=== PATIENT | female | born 1970 | race Caucasian/White ===

== ENCOUNTER 2018-02-24 15:08 | Emergency (ER) | payer BC ==
--- NOTE | 2018-02-24 17:09 | EDPHYS ---
Physician Documentation [facility] Name: Linda Verdin Age: 48 yrs Sex: Female : 1970 Arrival Date: 02/24/2018 Time: 15:10 Bed 18 Private MD: ED Physician Christiano Romo HPI: 02/24 17:07 This 48 yrs old Female presents to ER via Ambulatory with complaints of Nose kb Bleed. 17:07 The patient presents with a nose bleed, and the bleeding resolved prior to arrival. kb Onset: The symptoms/episode began/occurred just prior to arrival. Modifying factors: The symptoms are alleviated by pressure, the symptoms are aggravated by nothing. Associated signs and symptoms: The patient has no apparent associated signs or symptoms, Loss of consciousness: the patient experienced no loss of consciousness. Severity of symptoms: At their worst the symptoms were moderate in the emergency department the symptoms are unchanged. The patient has not experienced similar symptoms in the past. The patient has not recently seen a physician. 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 - Social history:: Smoking status: Patient/guardian denies using tobacco. - Ebola Screening: : No symptoms or risks identified at this time. ROS: 17:06 Constitutional: Negative for fever, chills, and weight loss, Cardiovascular: Negative kb for chest pain, palpitations, and edema, Respiratory: Negative for shortness of breath, cough, wheezing, and pleuritic chest pain, Abdomen/GI: Negative for abdominal pain, nausea, vomiting, diarrhea, and constipation, MS/Extremity: Negative for injury and deformity, Skin: Negative for injury, rash, and discoloration, Neuro: Negative for headache, weakness, numbness, tingling, and seizure. 17:06 ENT: Positive for nose bleed. Exam: 17:06 Constitutional: This is a well developed, well nourished patient who is awake, alert, kb and in no acute distress. Head/Face: Normocephalic, atraumatic. Neck: Trachea midline, no thyromegaly or masses palpated, and no cervical lymphadenopathy. Supple, full range of motion without nuchal rigidity, or vertebral point tenderness. No Meningismus. Chest/axilla: Normal chest wall appearance and motion. Nontender with no deformity. No lesions are appreciated. Cardiovascular: Regular rate and rhythm with a normal S1 and S2. No gallops, murmurs, or rubs. Normal PMI, no JVD. No pulse deficits. Respiratory: Lungs have equal breath sounds bilaterally, clear to auscultation and percussion. No rales, rhonchi or wheezes noted. No increased work of breathing, no retractions or nasal flaring. Abdomen/GI: Soft, non-tender, with normal bowel sounds. No distension or tympany. No guarding or rebound. No evidence of tenderness throughout. Skin: Warm, dry with normal turgor. Normal color with no rashes, no lesions, and no evidence of cellulitis. MS/ Extremity: Pulses equal, no cyanosis. Neurovascular intact. Full, normal range of motion. Neuro: Awake and alert, GCS 15, oriented to person, place, time, and situation. Cranial nerves II-XII grossly intact. Motor strength 5/5 in all extremities. Sensory grossly intact. Cerebellar exam normal. Normal gait. 17:06 ENT: Nose: clotted blood, in both nares. Vital Signs: 15:25 BP 138 / 71; Pulse 94; Resp 18 S; Temp 98.2(TE); Pulse Ox 98% on R/A; Weight 106.14 kg aa5 (R); Height 5 ft. 2 in. (157.48 cm) (R); Pain 0/10; 17:06 BP 140 / 76; Pulse 85; Resp 18; Pulse Ox 97% on R/A; hj 15:25 Body Mass Index 42.80 (106.14 kg, 157.48 cm) aa5 MDM: 16:40 Patient medically screened. kb 17:07 Data reviewed: vital signs, nurses notes. Data interpreted: Pulse oximetry: on room air kb is 97 %. Interpretation: normal. Counseling: I had a detailed discussion with the patient and/or guardian regarding: the historical points, exam findings, and any diagnostic results supporting the discharge/admit diagnosis, the need for outpatient follow up, a family practitioner, to return to the emergency department if symptoms worsen or persist or if there are any questions or concerns that arise at home. Administered Medications: No medications were administered Disposition: 02/25 07:54 Co-signature as Attending Physician, Christiano Romo MD I agree with the assessment and sanchez plan of care. Disposition: 02/24/18 17:08 Discharged to Home. Impression: Epistaxis. - Condition is Stable. - Discharge Instructions: Nosebleed, [id number]. - Medication Reconciliation Form, Thank You Letter, Antibiotic Education, Prescription Opioid Use form. - Follow up: Emergency Department; When: As needed; Reason: Worsening of condition. Follow up: Private Physician; When: 2 - 3 days; Reason: Recheck today's complaints, Continuance of care, Re-evaluation by your physician. Signatures: Marialuisa Dunlap, BINU-C WATER TREATMENT PLANT OPERATOR-Christiano Saha MD MD cha Calderon, Audri, RN RN aa5 Seymour Singh, RN RN hj Corrections: (The following items were deleted from the chart) 02/24 17:21 17:08 02/24/2018 17:08 Discharged to Home. Impression: Epistaxis. Condition is Stable. hj Forms are Medication Reconciliation Form, Thank You Letter, Antibiotic Education, Prescription Opioid Use. Follow up: Emergency Department; When: As needed; Reason: Worsening of condition. Follow up: Private Physician; When: 2 - 3 days; Reason: Recheck today's complaints, Continuance of care, Re-evaluation by your physician. kb
--- NOTE | 2018-02-24 17:09 | ER ---
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 Pt states "I've aa5 had the flu for the last week but it's pretty much gone now". No bleeding noted at this time. Denies taking anticoagulants. Transition of care: patient was not received from another setting of care. Onset of symptoms was February 24, 2018. Risk Assessment: Do you want to hurt yourself or someone else? Patient reports no desire to harm self or others. Initial Sepsis Screen: Does the patient meet any 2 criteria? No. Patient's initial sepsis screen is negative. Does the patient have a suspected source of infection? No. Patient's initial sepsis screen is negative. Care prior to arrival: None. 15:23 Method Of Arrival: Ambulatory aa5 15:23 Acuity: JOAQUINA 4 aa5 Triage Assessment: 16:24 General: Appears in no apparent distress. uncomfortable, Behavior is calm, cooperative, hj appropriate for age. Pain: Denies pain. 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 - Social history:: Smoking status: Patient/guardian denies using tobacco. - Ebola Screening: : No symptoms or risks identified at this time. Screenin:24 Abuse screen: Denies threats or abuse. Denies injuries from another. Nutritional hj screening: No deficits noted. Tuberculosis screening: No symptoms or risk factors identified. Fall Risk None identified. Assessment: 15:25 General: Appears in no apparent distress. uncomfortable, Behavior is calm, cooperative, hj appropriate for age. Pain: Denies pain. Neuro: Level of Consciousness is awake, alert, obeys commands, Oriented to person, place, time, situation, Appropriate for age. Cardiovascular: Capillary refill < 3 seconds Patient's skin is warm and dry. Respiratory: Reports nose bleed that stopped after 10 mins of pressure; Airway is patent Respiratory effort is even, unlabored, Respiratory pattern is regular, symmetrical, Parent/caregiver reports the patient having. GI:. : No signs and/or symptoms were reported regarding the genitourinary system. EENT: No signs and/or symptoms were reported regarding the EENT system. Derm: No signs and/or symptoms reported regarding the dermatologic system. Musculoskeletal: No signs and/or symptoms reported regarding the musculoskeletal system. 16:30 Reassessment: Patient and/or family updated on plan of care and expected duration. Pain hj level reassessed. Patient is alert, oriented x 3, equal unlabored respirations, skin warm/dry/pink. took propanol; will re check BP;. 17:09 Reassessment: Patient and/or family updated on plan of care and expected duration. Pain hj level reassessed. Patient is alert, oriented x 3, equal unlabored respirations, skin warm/dry/pink. BP re checked, no reports of bleeding;. Vital Signs: 15:25 BP 138 / 71; Pulse 94; Resp 18 S; Temp 98.2(TE); Pulse Ox 98% on R/A; Weight 106.14 kg aa5 (R); Height 5 ft. 2 in. (157.48 cm) (R); Pain 0/10; 17:06 BP 140 / 76; Pulse 85; Resp 18; Pulse Ox 97% on R/A; hj 15:25 Body Mass Index 42.80 (106.14 kg, 157.48 cm) aa5 ED Course: 15:10 Patient arrived in ED. mr 15:25 Triage completed. aa5 15:25 Arm band placed on. aa5 16:24 Seymour Singh, RN is Primary Nurse. hj 16:24 Patient has correct armband on for positive identification. Bed in low position. Call hj light in reach. Side rails up X 1. 16:39 Marialuisa Dunlap FNP-C is [facility]. kb 16:39 Christiano Romo MD is Attending Physician. kb 17:20 No provider procedures requiring assistance completed. Patient did not have IV access hj during this emergency room visit. Administered Medications: No medications were administered Outcome: 17:08 Discharge ordered by . kb 17:21 Discharged to home ambulatory. hj 17:21 Condition: stable 17:21 Discharge instructions given to patient, Instructed on discharge instructions, follow up and referral plans. Demonstrated understanding of instructions, follow-up care. 17:21 Patient left the ED. hj Signatures: Marialuisa Dunlap FNP-C FNP-Tammie Dunn Jennifer Valentin, RN RN aa5 Seymour Singh, CHRISTY RN
[2018-02-24 18:09] VITALS: TEMP 98.2
[2018-02-24 18:12] VITALS: BP 140/76; O2SAT 97
== END 2018-02-24 17:21 | disposition home or self-care (01) ==
LOC: ER 15:08
DX: R04.0 Epistaxis (principal); Z88.0 Allergy status to penicillin; I10 Essential (primary) hypertension; F41.8 Other specified anxiety disorders
CPT/HCPCS: 99281

== ENCOUNTER 2018-05-09 19:11 | Emergency (ER) | payer BC ==
[2018-05-09] MEDS ORDERED: BENZONATATE 100 MG CAP PO ONE (20:05)
--- NOTE | 2018-05-09 20:56 | ER ---
Nurse's Notes [facility] Name: Linda Verdin Age: 48 yrs Sex: Female : 1970 Arrival Date: 05/09/2018 Time: 19:15 Bed 26 Private MD: Diagnosis: Acute upper respiratory infection, unspecified Presentation: 05/09 19:19 Presenting complaint: Patient states: "My grand-daughter has strep throat so I wanted hb to get checked out. My throat is red and itchy" Reports that her throat has been sore for the past 3 days. Denies fever. Transition of care: patient was not received from another setting of care. Resp Distress? No respiratory distress is noted at this time. Onset of symptoms was May 07, 2018. Risk Assessment: Do you want to hurt yourself or someone else? Patient reports no desire to harm self or others. Initial Sepsis Screen: Does the patient meet any 2 criteria? No. Patient's initial sepsis screen is negative. Does the patient have a suspected source of infection? No. Patient's initial sepsis screen is negative. Care prior to arrival: None. 19:19 Method Of Arrival: Ambulatory 19:19 Acuity: JOAQUINA 4 hb Triage Assessment: 19:22 General: Appears in no apparent distress. comfortable, Behavior is calm, cooperative, hb appropriate for age. Pain: Complains of pain in left aspect of posterior pharynx and right aspect of posterior pharynx Pain currently is 3 out of 10 on a pain scale. Neuro: Level of Consciousness is awake, alert, obeys commands. Cardiovascular: Patient's skin is warm and dry. Respiratory: Airway is patent Respiratory effort is even, unlabored, Respiratory pattern is regular, symmetrical. 19:31 EENT: Throat is clear is pink Reports nasal congestion nasal discharge. Respiratory: ak1 Breath sounds are clear. GI: No signs and/or symptoms were reported involving the gastrointestinal system. : No signs and/or symptoms were reported regarding the genitourinary system. Derm: No signs and/or symptoms reported regarding the dermatologic system. Musculoskeletal: No signs and/or symptoms reported regarding the musculoskeletal system. 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 - Social history:: Smoking status: Patient/guardian denies using tobacco. - Ebola Screening: : Patient denies travel to an Ebola-affected area in the 21 days before illness onset. Screenin:30 Abuse screen: Denies threats or abuse. Denies injuries from another. Nutritional ak1 screening: No deficits noted. Tuberculosis screening: No symptoms or risk factors identified. Fall Risk None identified. Assessment: 19:31 Reassessment: Patient appears in no apparent distress at this time. No changes from ak1 previously documented assessment. see triage assessment. Vital Signs: 19:22 BP 137 / 96; Pulse 87; Resp 18; Temp 97.6; Pulse Ox 98% on R/A; Weight 111.13 kg (R); hb Height 5 ft. 2 in. (157.48 cm) (R); Pain 3/10; 19:22 Body Mass Index 44.81 (111.13 kg, 157.48 cm) hb ED Course: 19:15 Patient arrived in ED. mr 19:21 Triage completed. hb 19:22 Arm band placed on Patient placed in an exam room. hb 19:26 Ana Cristina Mead, RN is Primary Nurse. ak1 19:31 Patient has correct armband on for positive identification. Bed in low position. Call ak1 light in reach. Side rails up X 1. 19:34 Christiano Woo PA is PHCP. cp 19:36 Memo Li MD is Attending Physician. cp 20:22 No provider procedures requiring assistance completed. ak1 21:00 Patient did not have IV access during this emergency room visit. ak1 Administered Medications: 20:01 Drug: Tessalon Perle 200 mg Route: PO; ak1 20:22 Follow up: Response: No adverse reaction ak1 Outcome: 20:54 Condition: good ak1 20:56 Discharge ordered by . cp 20:58 Discharged to home ambulatory. ak1 20:58 Discharge instructions given to patient, Instructed on discharge instructions, follow up and referral plans. no drinking with medication, no driving heavy equipment, medication usage, Demonstrated understanding of instructions, follow-up care, medications, Prescriptions given X 2. 21:01 Patient left the ED. ak1 Signatures: Chen Esteban mr Ana Cristina Mead RN RN ak1 Christiano Woo PA PA cp Baxter, Heather, CHRISTY RN
--- NOTE | 2018-05-09 20:56 | EDPHYS ---
Physician Documentation [facility] Name: Linda Verdin Age: 48 yrs Sex: Female : 1970 Arrival Date: 05/09/2018 Time: 19:15 Bed 26 Private MD: ED Physician Memo Li HPI: 05/09 19:45 This 48 yrs old Female presents to ER via Ambulatory with complaints of cp Congestion, Sore Throat, Cough. 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 - Social history:: Smoking status: Patient/guardian denies using tobacco. - Ebola Screening: : Patient denies travel to an Ebola-affected area in the 21 days before illness onset. ROS: 20:00 Constitutional: Negative for body aches, chills, fever, poor PO intake. cp 20:00 Eyes: Negative for injury, pain, redness, and discharge. cp 20:00 ENT: Positive for sore throat, Negative for drainage from ear(s), ear pain, difficulty swallowing, difficulty handling secretions. 20:00 Cardiovascular: Negative for chest pain. 20:00 Respiratory: Positive for cough, Negative for shortness of breath, wheezing. 20:00 Abdomen/GI: Negative for abdominal pain, nausea, vomiting, and diarrhea. 20:00 Skin: Negative for cellulitis, rash. 20:00 Neuro: Negative for altered mental status, headache. 20:00 All other systems are negative. Exam: 20:05 Constitutional: The patient appears in no acute distress, alert, awake, non-toxic, well cp developed, well nourished. 20:05 Head/Face: Normocephalic, atraumatic. cp 20:05 Eyes: Periorbital structures: appear normal, Conjunctiva: normal, no exudate, no injection, Lids and lashes: appear normal, bilaterally. 20:05 ENT: External ear(s): are unremarkable, Ear canal(s): are normal, clear, TM's: bulging, is not appreciated, bilaterally, dullness, bilaterally, erythema, is not appreciated, bilaterally, Nose: is normal, Mouth: Lips: moist, Oral mucosa: pink and intact, moist, Posterior pharynx: Airway: no evidence of obstruction, patent, Tonsils: no enlargement, no exudate, swelling, is not appreciated, erythema, that is mild, exudate, is not appreciated. 20:05 Neck: ROM/movement: is normal, is supple, without pain, no range of motions limitations, no nuchal rigidity, Lymph nodes: lymphadenopathy is appreciated, anterior cervical nodes. 20:05 Chest/axilla: Inspection: normal, Palpation: is normal, no crepitus, no tenderness. 20:05 Cardiovascular: Rate: normal, Rhythm: regular, Edema: is not appreciated, JVD: is not appreciated. 20:05 Respiratory: the patient does not display signs of respiratory distress, Respirations: normal, no use of accessory muscles, no retractions, no splinting, no tachypnea, Breath sounds: are clear throughout, no decreased breath sounds, no stridor, no wheezing. 20:05 Abdomen/GI: Exam negative for discomfort, distension, guarding, Inspection: abdomen appears normal. 20:05 Back: pain, is absent, ROM is normal. 20:05 Skin: cellulitis, is not appreciated, no rash present. Vital Signs: 19:22 BP 137 / 96; Pulse 87; Resp 18; Temp 97.6; Pulse Ox 98% on R/A; Weight 111.13 kg (R); hb Height 5 ft. 2 in. (157.48 cm) (R); Pain 3/10; 19:22 Body Mass Index 44.81 (111.13 kg, 157.48 cm) hb MDM: 19:36 Patient medically screened. cp 20:00 Differential diagnosis: URI, pneumonia meningitis, strep throat, influenza. cp 20:55 Data reviewed: vital signs, nurses notes, lab test result(s), and as a result, I will cp discharge patient. 20:55 Counseling: I had a detailed discussion with the patient and/or guardian regarding: the cp historical points, exam findings, and any diagnostic results supporting the discharge/admit diagnosis, lab results, to return to the emergency department if symptoms worsen or persist or if there are any questions or concerns that arise at home. Special discussion: I discussed with the patient/guardian that the patient's current presentation does not indicate dosing of antibiotics. They should follow-up with their primary care provider and return if the symptoms persist or progress. 05/09 19:27 Order name: Strep; Complete Time: 20:52 ak1 05/09 20:52 Interpretation: Reviewed. cp 05/09 19:50 Order name: Influenza Screen (a \T\ B); Complete Time: 20:52 cp 05/09 20:52 Interpretation: Reviewed. 05/09 19:56 Order name: Throat Culture EDMS Administered Medications: 20:01 Drug: Tessalon Perle 200 mg Route: PO; ak1 20:22 Follow up: Response: No adverse reaction ak1 Disposition: 05/09/18 20:56 Discharged to Home. Impression: Acute upper respiratory infection, unspecified. - Condition is Stable. - Discharge Instructions: Upper Respiratory Infection, Adult. - Prescriptions for Tessalon Perles 100 mg Oral Capsule - take 2 capsule by ORAL route every 8 hours As needed; 30 capsule. Albuterol Sulfate 90 mcg/actuation - inhale 1-2 puff by INHALATION route every 4-6 hours; 1 Inhaler. - Medication Reconciliation Form, Thank You Letter, Antibiotic Education, Prescription Opioid Use form. - Follow up: Private Physician; When: 2 - 3 days; Reason: symptoms continue. - Problem is new. - Symptoms have improved. Addendum: 05/12/2018 20:56 Co-signature as Attending Physician, Memo Li MD Available for consultation at p s1 all times. Signatures: Dispatcher [employer] EDMS Ana Cristina Mead RN RN ak1 Christiano Woo PA PA cp Baxter, Heather, RN RN hb Singer, Phillip, MD MD ps1 Corrections: (The following items were deleted from the chart) 05/09 21:01 20:56 05/09/2018 20:56 Discharged to Home. Impression: Acute upper respiratory ak1 infection, unspecified. Condition is Stable. Forms are Medication Reconciliation Form, Thank You Letter, Antibiotic Education, Prescription Opioid Use. Follow up: Private Physician; When: 2 - 3 days; Reason: symptoms continue. Problem is new. Symptoms have improved. cp
[2018-05-09 21:23] VITALS: BP 137/96; TEMP 97.6; O2SAT 98
== END 2018-05-09 21:01 | disposition home or self-care (01) ==
LOC: ER 19:11
DX: J06.9 Acute upper respiratory infection, unspecified (principal); I10 Essential (primary) hypertension; F32.9 Major depressive disorder, single episode, unspecified; F41.9 Anxiety disorder, unspecified; Z79.899 Other long term (current) drug therapy
CPT/HCPCS: 87070; 87081; 87804; 99283

== ENCOUNTER 2018-07-16 14:03 | Emergency (ER) | payer BC ==
--- NOTE | 2018-07-16 16:44 | EKG ---
Test Date: 2018-07-16 Test Time: 15:42:35 Appeals Nurse: DENISE MEASUREMENT RESULTS: Intervals: Rate: 66 MT: 182 QRSD: 88 QT: 400 QTc: 419 [place]: P: 29 MT: 182 QRS: 12 T: 25 INTERPRETIVE STATEMENTS: Normal sinus rhythm Minimal voltage criteria for LVH, may be normal variant Borderline ECG Compared to ECG 06/20/2016 23:23:45 No significant changes Electronically Signed On 07-16-18 16:43:06 LIQUOR ESTABLISHMENT MANAGER by Tr Nava
[2018-07-16 17:57] LABS: Absolute Lymphocytes (CBC) 4.1 K/uL (0.7-4.9); Absolute Neutrophil 6.8 K/uL (1.8-8.0); Basophils % 0.6 % (0-1.3); Eosinophils % 2.7 % (0-4.4); Hematocrit 41.2 % (36.0-45.0); Lymphocytes % 33.2 % (15.3-44.8); MPV 8.9 fL (7.6-11.3); Monocytes % 8.2 % (3.3-12.3); RBC Red Blood Cell Count 4.73 M/uL (3.86-4.86)
[2018-07-16 18:19] LABS: BUN Blood Urea Nitrogen 14 mg/dL (7-18); Bicarbonate 29 mmol/L (21-32); Glucose Level 94 mg/dL (74-106); Potassium 4.5 mmol/L (3.5-5.1); Sodium Level 140 mmol/L (136-145); Troponin (Emerg Dept Use Only) < 0.02 ng/mL (0.0-0.045)
--- NOTE | 2018-07-16 18:22 | ER ---
Nurse's Notes [facility] Name: Linda Verdin Age: 48 yrs Sex: Female : 1970 Arrival Date: 07/16/2018 Time: 14:06 Bed 8 Private MD: Unknown, Unknown Diagnosis: Hypertension, anxiety, hyperventilation, dehydration Presentation: 07/16 14:08 Presenting complaint: Anxiety x 1 hr, Home BP 158/91, HR 93. Denies headache. 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 Transition of care: patient was not received from another setting of care. Onset of symptoms was July 16, 2018. Risk Assessment: Do you want to hurt yourself or someone else? Patient reports no desire to harm self or others. Care prior to arrival: None. 14:08 Method Of Arrival: Ambulatory hb 14:08 Acuity: JOAQUINA 3 hb 15:45 Initial Sepsis Screen: Does the patient meet any 2 criteria? No. Patient's initial sv sepsis screen is negative. Does the patient have a suspected source of infection? No. Patient's initial sepsis screen is negative. 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 - Social history:: Smoking status: Patient/guardian denies using tobacco. - Ebola Screening: : No symptoms or risks identified at this time. - Family history:: not pertinent. - Hospitalizations: : No recent hospitalization is reported. Screenin:45 Abuse screen: Denies threats or abuse. Denies injuries from another. Nutritional sv screening: No deficits noted. Tuberculosis screening: No symptoms or risk factors identified. Fall Risk None identified. Assessment: 15:45 General: Appears in no apparent distress. comfortable, obese, well developed, Behavior sv is calm, cooperative, appropriate for age. General: Reports "maybe feeling anxious at times.". Pain: Denies pain. Neuro: Level of Consciousness is awake, alert, obeys commands, Oriented to person, place, time, situation, Moves all extremities. Full function Gait is steady. Respiratory: Respiratory effort is even, unlabored, Respiratory pattern is regular, symmetrical. Derm: Skin is pink, warm \\T\\ dry. 17:00 Reassessment: Patient appears in no apparent distress at this time. No changes from sv previously documented assessment. Patient and/or family updated on plan of care and expected duration. Pain level reassessed. Patient is alert, oriented x 3, equal unlabored respirations, skin warm/dry/pink. 19:29 Reassessment: Patient appears in no apparent distress at this time. No changes from sv previously documented assessment. Patient and/or family updated on plan of care and expected duration. Pain level reassessed. Patient is alert, oriented x 3, equal unlabored respirations, skin warm/dry/pink. Vital Signs: 14:09 BP 153 / 92; Pulse 82; Resp 18; Temp 98.2; Pulse Ox 100% on R/A; Pain 0/10; hb 16:05 BP 126 / 72; Pulse 64; Resp 18; Pulse Ox 100% ; sv 16:30 BP 121 / 79; Pulse 68; Resp 18; Pulse Ox 99% ; sv 17:00 BP 123 / 63; Pulse 65; Resp 18; Pulse Ox 100% ; sv 17:30 BP 117 / 56; Pulse 68; Resp 18; Pulse Ox 100% ; sv 18:00 BP 133 / 74; Pulse 70; Resp 18; Pulse Ox 99% ; sv 19:15 BP 127 / 72; Pulse 71; Resp 18; Pulse Ox 99% ; sv ED Course: 14:06 Patient arrived in ED. sb2 14:07 Unknown, Unknown is Private Physician. sb2 14:09 Triage completed. hb 14:09 Arm band placed on. hb 15:10 Arcadio Borja MD is Attending Physician. rn 15:32 Santa Barker RN is Primary Nurse. sv 15:45 Patient has correct armband on for positive identification. Placed in gown. Bed in low sv position. Call light in reach. Pulse ox on. NIBP on. Door closed. Head of bed elevated. 15:45 Missed attempt(s): 22 gauge in left forearm. Bleeding controlled, band aid applied, sv catheter tip intact. 15:46 EKG done, by prosthetic lab technician. reviewed by Arcadio Borja MD. dt2 15:48 Initial lab(s) drawn, by me, sent to lab. Inserted saline lock: 22 gauge in left sv antecubital area, using aseptic technique. Blood collected. Flushed left antecubital with 5 ml normal saline. 19:29 No provider procedures requiring assistance completed. IV discontinued, intact, sv bleeding controlled, No redness/swelling at site. Pressure dressing applied. Administered Medications: No medications were administered Outcome: 18:20 Discharge ordered by . rn 19:29 Discharged to home ambulatory. sv 19:29 Condition: stable 19:29 Discharge instructions given to patient, Instructed on discharge instructions, follow up and referral plans. Demonstrated understanding of instructions, follow-up care. 19:29 Patient left the ED. sv Signatures: Santa Barker, RN Arcadio Bal MD MD rn Baxter, Heather, Krysten Moreno RN sb2 Julissa Murdock dt2
--- NOTE | 2018-07-16 18:23 | EDPHYS ---
Physician Documentation [facility] Name: Linda Verdin Age: 48 yrs Sex: Female : 1970 Arrival Date: 07/16/2018 Time: 14:06 Bed 8 Private MD: Unknown, Unknown ED Physician Arcadio Borja HPI: 07/16 16:18 This 48 yrs old Female presents to ER via Ambulatory with complaints of High rn Blood Pressure. 16:18 The patient has elevated blood pressure and discovered this at home. Onset: The rn symptoms/episode began/occurred at an unknown time. Modifying factors:. Severity of symptoms: At its worst the blood pressure was mild, in the emergency department the blood pressure is improved. The patient has experienced similar episodes in the past. Reports several intermittent episodes of feeling "spacy" for a few days, noticed BP was high, also has frequent anxiety, took propranolol and felt better, no chest pain/sob/focal neuro deficits. . 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 - Social history:: Smoking status: Patient/guardian denies using tobacco. - Ebola Screening: : No symptoms or risks identified at this time. - Family history:: not pertinent. - Hospitalizations: : No recent hospitalization is reported. ROS: 16:18 Constitutional: Negative for fever, chills, and weight loss, Eyes: Negative for injury, rn pain, redness, and discharge, Neck: Negative for injury, pain, and swelling, Cardiovascular: Negative for chest pain, and edema, Respiratory: Negative for shortness of breath, cough, wheezing, and pleuritic chest pain, Abdomen/GI: Negative for abdominal pain, nausea, vomiting, diarrhea, and constipation, MS/Extremity: Negative for injury and deformity, Skin: Negative for injury, rash, and discoloration, Neuro: Negative for headache, weakness, numbness, tingling, and seizure. Exam: 16:18 Constitutional: This is a well developed, well nourished patient who is awake, alert, rn and in no acute distress. Head/Face: Normocephalic, atraumatic. Eyes: Pupils equal round and reactive to light, extra-ocular motions intact. Lids and lashes normal. Conjunctiva and sclera are non-icteric and not injected. Cornea within normal limits. Periorbital areas with no swelling, redness, or edema. ENT: MMM Cardiovascular: Regular rate and rhythm, No pulse deficits. Respiratory: Lungs have equal breath sounds bilaterally, clear to auscultation. No increased work of breathing, no retractions or nasal flaring. Abdomen/GI: soft, non-tender Skin: Warm, dry MS/ Extremity: Pulses equal, no cyanosis. Neurovascular intact. Full, normal range of motion. Equal circumference. Neuro: Awake and alert, GCS 15, oriented to person, place, time, and situation. Cranial nerves II-XII grossly intact. Motor strength 5/5 in all extremities. Sensory grossly intact. Vital Signs: 14:09 BP 153 / 92; Pulse 82; Resp 18; Temp 98.2; Pulse Ox 100% on R/A; Pain 0/10; hb 16:05 BP 126 / 72; Pulse 64; Resp 18; Pulse Ox 100% ; sv 16:30 BP 121 / 79; Pulse 68; Resp 18; Pulse Ox 99% ; sv 17:00 BP 123 / 63; Pulse 65; Resp 18; Pulse Ox 100% ; sv 17:30 BP 117 / 56; Pulse 68; Resp 18; Pulse Ox 100% ; sv 18:00 BP 133 / 74; Pulse 70; Resp 18; Pulse Ox 99% ; sv 19:15 BP 127 / 72; Pulse 71; Resp 18; Pulse Ox 99% ; sv MDM: 15:10 Patient medically screened. rn 18:18 Differential diagnosis: hypertensive crisis, Malignant HTN. Differential diagnosis: rn anxiety. Data reviewed: vital signs, nurses notes. Counseling: I had a detailed discussion with the patient and/or guardian regarding: the historical points, exam findings, and any diagnostic results supporting the discharge/admit diagnosis, lab results, the need for outpatient follow up, to return to the emergency department if symptoms worsen or persist or if there are any questions or concerns that arise at home. Response to treatment: the patient's condition has returned to base line, the patient is now symptom free, and as a result, I will discharge patient. Special discussion: I discussed with the patient/guardian in detail that at this point there is no indication for admission to the hospital. It is understood, however, that if the symptoms persist or worsen the patient needs to return immediately for re-evaluation. 18:18 Counseling: I had a detailed discussion with the patient and/or guardian regarding: the rn presence of at least one elevated blood pressure reading (>120/80) during this emergency department visit. 18:18 ED course: Will take BP journal and take to PCP for further BP management, normal neuro rn exam and w/u. . 07/16 15:31 Order name: CBC with Diff rn 07/16 15:31 Order name: Basic Metabolic Panel; Complete Time: 19:03 rn 07/16 15:31 Order name: IV Start; Complete Time: 16:04 rn 07/16 15:31 Order name: Troponin (emerg Dept Use Only); Complete Time: 19:03 rn 07/16 15:31 Order name: EKG; Complete Time: 15:32 rn 07/16 15:31 Order name: EKG - Nurse/Tech; Complete Time: 16:04 rn Administered Medications: No medications were administered Disposition: 07/16/18 18:20 Discharged to Home. Impression: Hypertension, anxiety, hyperventilation, dehydration. - Condition is Stable. - Discharge Instructions: Hypertension, Generalized Anxiety Disorder. - Medication Reconciliation Form, Thank You Letter, Antibiotic Education, Prescription Opioid Use form. - Follow up: Private Physician; When: As needed; Reason: Recheck today's complaints, Re-evaluation by your physician. - Problem is new. - Symptoms have improved. Signatures: Dispatcher [employer] Santa Gamboa RN RN sv Nieto, Roman, MD MD rn Baxter, Heather, RN RN Corrections: (The following items were deleted from the chart) 19:29 18:20 07/16/2018 18:20 Discharged to Home. Impression: Hypertension, anxiety, sv hyperventilation, dehydration. Condition is Stable. Forms are Medication Reconciliation Form, Thank You Letter, Antibiotic Education, Prescription Opioid Use. Follow up: Private Physician; When: As needed; Reason: Recheck today's complaints, Re-evaluation by your physician. Problem is new. Symptoms have improved. rn
[2018-07-16 20:22] VITALS: TEMP 98.2
[2018-07-16 20:28] VITALS: O2SAT 99
[2018-07-16 20:29] VITALS: BP 127/72
== END 2018-07-16 19:29 | disposition home or self-care (01) ==
LOC: ER 14:03
DX: I10 Essential (primary) hypertension (principal); F41.9 Anxiety disorder, unspecified; R06.4 Hyperventilation; E86.0 Dehydration; F32.9 Major depressive disorder, single episode, unspecified; Z79.899 Other long term (current) drug therapy
CPT/HCPCS: 36415; 80048; 84484; 85025; 93005; 99284

== ENCOUNTER 2018-12-05 17:27 | Emergency (ER) | payer BC ==
--- NOTE | 2018-12-05 18:52 | EDPHYS ---
Physician Documentation [facility] Name: Linda Verdin Age: 48 yrs Sex: Female : 1970 Arrival Date: 12/05/2018 Time: 17:31 Bed 12 Private MD: ED Physician Christiano Romo HPI: 12/05 18:07 This 48 yrs old Female presents to ER via Ambulatory with complaints of Sore cp Throat, Lost voice. 18:07 The patient presents with sore throat. The patient describes throat pain as scratchy. cp Onset: The symptoms/episode began/occurred 2-3 weeks ago. Associated signs and symptoms: Pertinent positives: loss of voice, intermittent cough, Pertinent negatives dysphagia, fever. 18:07 The patient has been recently seen at an urgent care, a couple of weeks ago, for cp similar complaints, given steroid injection and Flonase NS. 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 - Social history:: Smoking status: Patient/guardian denies using tobacco. - Ebola Screening: : No symptoms or risks identified at this time. ROS: 18:15 Constitutional: Negative for body aches, chills, fever, poor PO intake. cp 18:15 Eyes: Negative for injury, pain, redness, and discharge. cp 18:15 ENT: Positive for sore throat, Negative for drainage from ear(s), ear pain, difficulty swallowing, difficulty handling secretions. 18:15 Neck: Negative for pain with movement, pain at rest, stiffness. 18:15 Respiratory: Negative for cough, wheezing. 18:15 Abdomen/GI: Negative for abdominal pain, nausea, vomiting, and diarrhea. 18:15 Skin: Negative for cellulitis, rash. 18:15 Neuro: Negative for altered mental status, headache, weakness. 18:15 All other systems are negative. Exam: 18:20 Constitutional: The patient appears in no acute distress, alert, awake, non-toxic, well cp developed, well nourished. 18:20 Head/Face: Normocephalic, atraumatic. cp 18:20 Eyes: Periorbital structures: appear normal, Conjunctiva: normal, no exudate, no injection, Sclera: no appreciated abnormality, Lids and lashes: appear normal, bilaterally. 18:20 ENT: External ear(s): are unremarkable, Ear canal(s): are normal, clear, TM's: dullness, bilaterally, Nose: is normal, Mouth: Lips: moist, Oral mucosa: moist, Posterior pharynx: Airway: no evidence of obstruction, patent, Tonsils: no enlargement, no exudate, swelling, is not appreciated, erythema, that is mild, exudate, is not appreciated. 18:20 Neck: ROM/movement: is normal, is supple, without pain, no range of motions limitations, no meningismus, no nuchal rigidity, Lymph nodes: no appreciated lymphadenopathy. 18:20 Chest/axilla: Inspection: normal, Palpation: is normal, no crepitus, no tenderness. 18:20 Cardiovascular: Rate: normal, Rhythm: regular. 18:20 Respiratory: the patient does not display signs of respiratory distress, Respirations: normal, no use of accessory muscles, no retractions, no splinting, no tachypnea, labored breathing, is not present, Breath sounds: are clear throughout, no decreased breath sounds, no stridor, no wheezing. 18:20 Skin: no rash present. Vital Signs: 17:55 BP 128 / 78; Pulse 78; Resp 16; Temp 98; Pulse Ox 100% on R/A; Weight 111.13 kg; Height hb 5 ft. 2 in. (157.48 cm); Pain 2/10; 17:55 Body Mass Index 44.81 (111.13 kg, 157.48 cm) hb MDM: 17:58 Patient medically screened. cp 18:30 Differential diagnosis: epiglottitis, gingivostomatitis, group A strep tonsillitis, cp pradip's angina, mononucleosis, peritonsillar abscess retropharyngeal abcess. 18:50 Data reviewed: vital signs, nurses notes, lab test result(s), and as a result, I will cp discharge patient. 18:50 Counseling: I had a detailed discussion with the patient and/or guardian regarding: the cp historical points, exam findings, and any diagnostic results supporting the discharge/admit diagnosis, lab results, to return to the emergency department if symptoms worsen or persist or if there are any questions or concerns that arise at home. 12/05 18:07 Order name: Strep; Complete Time: 18:41 12/05 18:41 Interpretation: Reviewed. 12/05 18:42 Order name: Throat Culture EDLA Administered Medications: No medications were administered Disposition: 12/05/18 18:51 Discharged to Home. Impression: Acute laryngopharyngitis. - Condition is Stable. - Discharge Instructions: Laryngitis, Pharyngitis. - Prescriptions for Zithromax Z- Shakeel 250 mg Oral Tablet - take 1 tablet by ORAL route as directed for 5 days Day 1 - take two (2) tablets one time. Day 2, 3, 4 , 5 take one (1) tablet once daily.; 6 tablet. - Medication Reconciliation Form, Thank You Letter, Antibiotic Education, Prescription Opioid Use form. - Follow up: Santa Calhoun MD; When: 1 week; Reason: symptoms continue. - Problem is new. - Symptoms have improved. Addendum: 12/10/2018 16:39 Co-signature as Attending Physician, Christiano Romo MD I agree with the assessment and c mast plan of care. Signatures: Dispatcher [employer] EDLA hCristiano Romo MD MD cha Williams, Irene, RN RN iw Christiano Woo PA PA cp Baxter, Heather, CHRISTY RN Corrections: (The following items were deleted from the chart) 12/05 19:07 18:51 12/05/2018 18:51 Discharged to Home. Impression: Acute laryngopharyngitis. iw Condition is Stable. Forms are Medication Reconciliation Form, Thank You Letter, Antibiotic Education, Prescription Opioid Use. Follow up: Santa Calhoun; When: 1 week; Reason: symptoms continue. Problem is new. Symptoms have improved. cp
--- NOTE | 2018-12-05 18:52 | ER ---
Nurse's Notes [facility] Name: Linda Verdin Age: 48 yrs Sex: Female : 1970 Arrival Date: 12/05/2018 Time: 17:31 Bed 12 Private MD: Diagnosis: Acute laryngopharyngitis Presentation: 12/05 17:54 Presenting complaint: Nonproductive cough and hoarse voice x 2-3 days. Denies hb pain/fever. Transition of care: patient was not received from another setting of care. Onset of symptoms was December 02, 2018. Risk Assessment: Do you want to hurt yourself or someone else? Patient reports no desire to harm self or others. Care prior to arrival: None. 17:54 Method Of Arrival: Ambulatory hb 17:54 Acuity: JOAQUINA 4 hb 19:07 Initial Sepsis Screen: Does the patient meet any 2 criteria? No. Patient's initial iw sepsis screen is negative. Does the patient have a suspected source of infection? No. Patient's initial sepsis screen is negative. 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 - Social history:: Smoking status: Patient/guardian denies using tobacco. - Ebola Screening: : No symptoms or risks identified at this time. Screenin:06 Abuse screen: Denies threats or abuse. Denies injuries from another. Nutritional iw screening: No deficits noted. Tuberculosis screening: No symptoms or risk factors identified. Fall Risk None identified. Assessment: 19:05 General: Appears in no apparent distress. Behavior is calm, cooperative. Pain: iw Complains of pain in throat. Neuro: Level of Consciousness is awake, alert, obeys commands, Moves all extremities. Cardiovascular: Patient's skin is warm and dry. Respiratory: Airway is patent Respiratory effort is even, unlabored, Breath sounds are clear bilaterally. GI: No signs and/or symptoms were reported involving the gastrointestinal system. EENT: Throat is reddened bilaterally Reports difficulty swallowing. Derm: Skin is intact, is healthy with good turgor. Musculoskeletal: Range of motion: intact in all extremities. Vital Signs: 17:55 BP 128 / 78; Pulse 78; Resp 16; Temp 98; Pulse Ox 100% on R/A; Weight 111.13 kg; Height hb 5 ft. 2 in. (157.48 cm); Pain 2/10; 17:55 Body Mass Index 44.81 (111.13 kg, 157.48 cm) hb ED Course: 17:31 Patient arrived in ED. mr 17:55 Triage completed. hb 17:57 Arm band placed on. hb 17:58 Rebeca Putnam, RN is Primary Nurse. hb 17:58 Christiano Woo PA is PHCP. cp 17:58 Christiano Romo MD is Attending Physician. cp 18:30 Patient has correct armband on for positive identification. iw 18:44 Santa Calhoun MD is Referral Physician. cp 19:06 No provider procedures requiring assistance completed. Patient did not have IV access iw during this emergency room visit. Administered Medications: No medications were administered Outcome: 18:51 Discharge ordered by MD. cp 19:06 Discharged to home ambulatory. iw 19:06 Condition: good 19:06 Discharge instructions given to patient, Instructed on discharge instructions, follow up and referral plans. medication usage, Demonstrated understanding of instructions, follow-up care, medications, Prescriptions given X 1. 19:07 Patient left the ED. iw Signatures: Chen Esteban Irene RN CHRISTY Christiano Woo PA PA cp Baxter, Heather, RN RN
[2018-12-05 19:22] VITALS: BP 128/78; TEMP 98; O2SAT 100
== END 2018-12-05 19:07 | disposition home or self-care (01) ==
LOC: ER 17:27
DX: J06.0 Acute laryngopharyngitis (principal); I10 Essential (primary) hypertension; F41.9 Anxiety disorder, unspecified; F32.9 Major depressive disorder, single episode, unspecified; Z88.0 Allergy status to penicillin
CPT/HCPCS: 87070; 87081; 99282

== ENCOUNTER 2019-01-17 01:14 | Emergency (ER) | payer BC ==
[2019-01-17] MEDS ORDERED: ALBUTEROL 2.5 MG/3 ML NEB SOL ONE (01:51)
--- NOTE | 2019-01-17 02:56 | EDPHYS ---
Physician Documentation [facility] Name: Linda Verdin Age: 49 yrs Sex: Female : 1970 Arrival Date: 01/17/2019 Time: :17 Bed 5 Private MD: ED Physician Kayode Mccoy HPI: 01/17 03:15 This 49 yrs old Female presents to ER via Ambulatory with complaints of tw4 Breathing Difficulty. 03:15 The patient has shortness of breath at rest. Onset: The symptoms/episode began/occurred tw4 today. Duration: The symptoms are continuous. The patient's shortness of breath has no apparent modifying factors. Associated signs and symptoms: The patient has no apparent associated signs or symptoms. Severity of symptoms: At their worst the symptoms were mild in the emergency department the symptoms are unchanged. The patient has not experienced similar symptoms in the past. Historical: - Allergies: 01:39 PENICILLINS; aa1 - Home Meds: 01:39 Dexilant 60 mg Oral CpDB 1 cap once daily [Active]; ProAir HFA inhalation [Active]; aa1 Propranolol Oral as needed [Active]; Zoloft 50 mg Oral tab 1 tab once daily [Active]; Zyrtec Oral [Active]; - PMHx: 01:39 Anxiety; Depression; Diverticulitis; Hypertension; palpitations; SVT; Tachycardia; aa1 Sleep Apnea; - PSHx: 01:39 ; Tonsillectomy; aa1 - Immunization history:: Flu vaccine is not up to date. - Social history:: Smoking status: Patient/guardian denies using tobacco. - Ebola Screening: : Patient denies exposure to infectious person Patient denies travel to an Ebola-affected area in the 21 days before illness onset. ROS: 03:15 Constitutional: Negative for fever, chills, and weight loss, Eyes: Negative for injury, tw4 pain, redness, and discharge, Cardiovascular: Negative for chest pain, palpitations, and edema, Abdomen/GI: Negative for abdominal pain, nausea, vomiting, diarrhea, and constipation, Back: Negative for injury and pain. 03:15 MS/Extremity: Negative for injury and deformity, Skin: Negative for injury, rash, and discoloration, Neuro: Negative for headache, weakness, numbness, tingling, and seizure. 03:15 Respiratory: Positive for cough, shortness of breath. Exam: 03:15 Constitutional: This is a well developed, well nourished patient who is awake, alert, tw4 and in no acute distress. Head/Face: Normocephalic, atraumatic. Chest/axilla: Normal chest wall appearance and motion. Nontender with no deformity. No lesions are appreciated. Cardiovascular: Regular rate and rhythm with a normal S1 and S2. No gallops, murmurs, or rubs. Normal PMI, no JVD. No pulse deficits. Respiratory: Lungs have equal breath sounds bilaterally, clear to auscultation and percussion. No rales, rhonchi or wheezes noted. No increased work of breathing, no retractions or nasal flaring. Abdomen/GI: Soft, non-tender, with normal bowel sounds. No distension or tympany. No guarding or rebound. No evidence of tenderness throughout. Back: No spinal tenderness. No costovertebral tenderness. Full range of motion. MS/ Extremity: Pulses equal, no cyanosis. Neurovascular intact. Full, normal range of motion. Neuro: Awake and alert, GCS 15, oriented to person, place, time, and situation. Cranial nerves II-XII grossly intact. Motor strength 5/5 in all extremities. Sensory grossly intact. Cerebellar exam normal. Normal gait. Vital Signs: 01:39 BP 140 / 90; Pulse 84; Resp 20; Temp 98.4; Pulse Ox 99% on R/A; Weight 115.67 kg; aa1 Height 5 ft. 3 in. (160.02 cm); Pain 0/10; 02:40 BP 126 / 83; Pulse 89; Resp 18; Pulse Ox 99% on R/A; Pain 0/10; aa1 01:39 Body Mass Index 45.17 (115.67 kg, 160.02 cm) aa1 MDM: 01:43 Patient medically screened. tw4 03:15 Data reviewed: vital signs, nurses notes. Counseling: I had a detailed discussion with tw4 the patient and/or guardian regarding: the historical points, exam findings, and any diagnostic results supporting the discharge/admit diagnosis, lab results, radiology results. Medication response: albuterol nebulizer treatment(s) relieved the patient's symptoms. The patient is no longer wheezing. Response to treatment: and as a result, I will discharge patient. Special discussion: I discussed with the patient/guardian in detail that at this point there is no indication for admission to the hospital. It is understood, however, that if the symptoms persist or worsen the patient needs to return immediately for re-evaluation. 01/17 01:43 Order name: Chest Pa And Lat (2 Views) XRAY tw4 Administered Medications: 01:50 Drug: Albuterol 1.25 mg Route: Inhalation; aa1 Disposition: 03:20 Chart complete. tw4 Disposition: 01/17/19 02:55 Discharged to Home. Impression: Bronchitis, not specified as acute or chronic. - Condition is Stable. - Discharge Instructions: Acute Bronchitis, Adult. - Prescriptions for Tessalon Perles 100 mg Oral Capsule - take 1 capsule by ORAL route every 8 hours As needed; 15 capsule. Zithromax Z- Shakeel 250 mg Oral Tablet - take 1 tablet by ORAL route as directed for 5 days Day 1 - take two (2) tablets one time. Day 2, 3, 4 , 5 take one (1) tablet once daily.; 6 tablet. Albuterol Sulfate 90 mcg/actuation - inhale 1-2 puff by INHALATION route every 4-6 hours; 1 Inhaler. Guaifenesin AC 10- 100 mg/5 mL Oral Liquid - take 10 milliliter by ORAL route every 4 hours As needed; 240 milliliter. - Medication Reconciliation Form, Thank You Letter, Antibiotic Education, Prescription Opioid Use form. - Follow up: Private Physician; When: Upon discharge from the Emergency Department; Reason: If symptoms return, Recheck today's complaints, Continuance of care. - Problem is new. - Symptoms have improved. Signatures: Dispatcher [employer] EDMarquita Blake RN RN aa1 Carlos Rosales RN RN jb4 Kayode Mccoy MD MD tw4 Corrections: (The following items were deleted from the chart) 03:04 02:55 01/17/2019 02:55 Discharged to Home. Impression: Bronchitis, not specified as jb4 acute or chronic. Condition is Stable. Forms are Medication Reconciliation Form, Thank You Letter, Antibiotic Education, Prescription Opioid Use. Follow up: Private Physician; When: Upon discharge from the Emergency Department; Reason: If symptoms return, Recheck today's complaints, Continuance of care. Problem is new. Symptoms have improved. tw4
--- NOTE | 2019-01-17 02:56 | ER ---
Nurse's Notes [facility] Name: Linda Verdin Age: 49 yrs Sex: Female : 1970 Arrival Date: 01/17/2019 Time: : Bed 5 Private MD: Diagnosis: Bronchitis, not specified as acute or chronic Presentation: 01/17 01:36 Presenting complaint: Patient states: cough and sinus drainage for past couple months. aa1 Reports being seen here for it 1 month ago and was given a z-pack and it improved but then came back again. Transition of care: patient was not received from another setting of care. Onset of symptoms was November 2018. Risk Assessment: Do you want to hurt yourself or someone else? Patient reports no desire to harm self or others. Initial Sepsis Screen: Does the patient meet any 2 criteria? No. Patient's initial sepsis screen is negative. Does the patient have a suspected source of infection? No. Patient's initial sepsis screen is negative. Care prior to arrival: None. 01:36 Method Of Arrival: Ambulatory aa1 01:36 Acuity: JOAQUINA 4 aa1 Historical: - Allergies: 01:39 PENICILLINS; aa1 - Home Meds: 01:39 Dexilant 60 mg Oral CpDB 1 cap once daily [Active]; ProAir HFA inhalation [Active]; aa1 Propranolol Oral as needed [Active]; Zoloft 50 mg Oral tab 1 tab once daily [Active]; Zyrtec Oral [Active]; - PMHx: 01:39 Anxiety; Depression; Diverticulitis; Hypertension; palpitations; SVT; Tachycardia; aa1 Sleep Apnea; - PSHx: 01:39 ; Tonsillectomy; aa1 - Immunization history:: Flu vaccine is not up to date. - Social history:: Smoking status: Patient/guardian denies using tobacco. - Ebola Screening: : Patient denies exposure to infectious person Patient denies travel to an Ebola-affected area in the 21 days before illness onset. Screenin:40 Abuse screen: Denies threats or abuse. Denies injuries from another. Nutritional aa1 screening: No deficits noted. Tuberculosis screening: No symptoms or risk factors identified. Fall Risk None identified. Assessment: 01:40 General: Appears in no apparent distress. comfortable, Behavior is calm, cooperative, aa1 appropriate for age. Pain: Denies pain. Neuro: Level of Consciousness is awake, alert, obeys commands, Oriented to person, place, time, situation, Moves all extremities. Full function Gait is steady, Speech is normal. Cardiovascular: Heart tones S1 S2 present Rhythm is regular. Respiratory: Reports cough that is Airway is patent Respiratory effort is even, unlabored, Respiratory pattern is regular, symmetrical, Breath sounds are clear bilaterally. GI: No signs and/or symptoms were reported involving the gastrointestinal system. : No signs and/or symptoms were reported regarding the genitourinary system. EENT: No signs and/or symptoms were reported regarding the EENT system. Derm: Skin is intact, is healthy with good turgor, Skin is pink, warm \T\ dry. Musculoskeletal: Circulation, motion, and sensation intact. Capillary refill < 3 seconds. 02:40 Reassessment: Patient appears in no apparent distress at this time. Patient and/or aa1 family updated on plan of care and expected duration. Pain level reassessed. Patient is alert, oriented x 3, equal unlabored respirations, skin warm/dry/pink. Awaiting x-ray results. 03:02 Reassessment: Patient appears in no apparent distress at this time. Patient is alert, jb4 oriented x 3, equal unlabored respirations, skin warm/dry/pink. Pt verbalized understanding of d/c and follow up instructions. Ambulated out of Ed with steady gait. Vital Signs: 01:39 BP 140 / 90; Pulse 84; Resp 20; Temp 98.4; Pulse Ox 99% on R/A; Weight 115.67 kg; aa1 Height 5 ft. 3 in. (160.02 cm); Pain 0/10; 02:40 BP 126 / 83; Pulse 89; Resp 18; Pulse Ox 99% on R/A; Pain 0/10; aa1 01:39 Body Mass Index 45.17 (115.67 kg, 160.02 cm) aa1 ED Course: 01:17 Patient arrived in ED. es 01:33 Kayode Mccoy MD is Attending Physician. tw4 01:37 Triage completed. aa1 01:39 Arm band placed on right wrist. Patient placed in an exam room, on a stretcher. aa1 01:40 Patient has correct armband on for positive identification. Bed in low position. Call aa1 light in reach. Pulse ox on. NIBP on. 01:46 Marquita Diaz, RN is Primary Nurse. aa1 02:43 Chest Pa And Lat (2 Views) XRAY In Process Unspecified. EDMS 03:02 No provider procedures requiring assistance completed. Patient did not have IV access jb4 during this emergency room visit. Administered Medications: 01:50 Drug: Albuterol 1.25 mg Route: Inhalation; aa1 Outcome: 02:55 Discharge ordered by . tw4 03:02 Discharged to home ambulatory. jb4 03:02 Condition: stable 03:02 Discharge instructions given to patient, Instructed on discharge instructions, follow up and referral plans. medication usage, Demonstrated understanding of instructions, follow-up care, medications, Prescriptions given X 4. 03:04 Patient left the ED. jb4 Signatures: Dispatcher [employer] EDUT Marquita Diaz, RN RN aa1 Autumn Louie James, RN RN jb4 Kayode Mccoy MD MD tw4
[2019-01-17 04:16] VITALS: TEMP 98.4; O2SAT 99
[2019-01-17 04:18] VITALS: BP 126/83
--- NOTE | 2019-01-17 12:08 | RAD REPORT ---
EXAM DESCRIPTION: RAD - Chest Pa And Lat (2 Views) - 01/17/2019 2:44 am CLINICAL HISTORY: Cough;SOB Chest pain. COMPARISON: Chest Single View dated 06/21/2016; Chest Single View dated 06/15/2016 FINDINGS: The lungs are clear. The heart is normal in size. No displaced fractures. IMPRESSION: No acute or concerning finding suspected.
== END 2019-01-17 03:04 | disposition home or self-care (01) ==
LOC: ER 01:14
DX: J40 Bronchitis, not specified as acute or chronic (principal); I10 Essential (primary) hypertension; F41.8 Other specified anxiety disorders; Z88.0 Allergy status to penicillin
CPT/HCPCS: 71046; 99284

== ENCOUNTER 2019-05-14 00:04 | Emergency (ER) | payer BC ==
[2019-05-14 01:07] LABS: Absolute Lymphocytes (CBC) 4.6 K/uL (0.7-4.9); Basophils % 0.6 % (0-1.3); Hematocrit 38.6 % (36.0-45.0); Lymphocytes % 37.6 % (15.3-44.8); MPV 9.9 fL (7.6-11.3); RBC Red Blood Cell Count 4.34 M/uL (3.86-4.86)
[2019-05-14 01:31] LABS: ALT/SGPT 68 U/L (12-78); AST/SGOT 32 U/L (15-37); Albumin 3.6 g/dL (3.4-5.0); Alkaline Phosphatase 64 U/L (45-117); BUN Blood Urea Nitrogen 14 mg/dL (7-18); Bicarbonate 24 mmol/L (21-32); Bilirubin Direct < 0.1 mg/dL (0-0.2); Bilirubin Total 0.3 mg/dL (0.2-1.0); Glucose Level 152 mg/dL (74-106); Magnesium 1.8 mg/dL (1.8-2.4); Potassium 3.7 mmol/L (3.5-5.1); Sodium Level 141 mmol/L (136-145); Troponin (Emerg Dept Use Only) < 0.02 ng/mL (0.0-0.045)
--- NOTE | 2019-05-14 01:42 | EDPHYS ---
Physician Documentation [facility] Name: Linda Verdin Age: 49 yrs Sex: Female : 1970 Arrival Date: 05/14/2019 Time: 00:07 Bed 5 Private MD: ED Physician Chase Hernandez HPI: 05/14 00:26 This 49 yrs old Female presents to ER via Unassigned with complaints of la1 IRREGULAR HEART BEAT. 00:26 The patient presents with a history of heart skipping beats. Context: The symptoms la1 occur at rest, without known cause, and the patient has a history of PVC. Onset: The symptoms/episode began/occurred 3 day(s) ago. Duration: The patient or guardian reports multiple episodes, that are intermittent. Modifying factors: The symptoms are aggravated by nothing. The symptoms are alleviated by nothing. Associated signs and symptoms: Pertinent negatives: chest pain, lightheadedness, nausea, SOB, syncope, near-syncope, vomiting. Severity of symptoms: At their worst the symptoms were mild. The patient has experienced similar episodes in the past. The patient has not recently seen a physician. Pt with hx of PVCs states she had gotten them mostly under control with propanolol but the last three days they have been more frequent. 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 - Social history:: Smoking status: Patient/guardian denies using tobacco. - Ebola Screening: : No symptoms or risks identified at this time. ROS: 00:27 Constitutional: Negative for fever, chills, and weight loss, Eyes: Negative for injury, la1 pain, redness, and discharge, ENT: Negative for injury, pain, and discharge, Neck: Negative for injury, pain, and swelling, Cardiovascular: Negative for chest pain, palpitations, and edema, Respiratory: Negative for shortness of breath, cough, wheezing, and pleuritic chest pain, Abdomen/GI: Negative for abdominal pain, nausea, vomiting, diarrhea, and constipation, Back: Negative for injury and pain, MS/Extremity: Negative for injury and deformity, Neuro: Negative for headache, weakness, numbness, tingling, and seizure. Exam: 00:28 Constitutional: This is a well developed, well nourished patient who is awake, alert, la1 and in no acute distress. Head/Face: Normocephalic, atraumatic. Eyes: Pupils equal round and reactive to light, extra-ocular motions intact.Periorbital areas with no swelling, redness, or edema. ENT: . Mucous membranes moist. Neck: No Meningismus. Chest/axilla: Normal chest wall appearance and motion. Nontender with no deformity. No lesions are appreciated. Cardiovascular: Regular rate and rhythm with a normal S1 and S2. No gallops, murmurs, or rubs. Normal PMI, no JVD. No pulse deficits. Respiratory: Lungs have equal breath sounds bilaterally, clear to auscultation No rales, rhonchi or wheezes noted. No increased work of breathing, no retractions or nasal flaring. Abdomen/GI: Soft, non-tender, with normal bowel sounds. No guarding or rebound. No evidence of tenderness throughout. MS/ Extremity: Pulses equal, no cyanosis. Neurovascular intact. Full, normal range of motion. Neuro: Awake and alert, GCS 15, oriented to person, place, time, and situation. . Normal gait. Psych: Awake, alert, with orientation to person, place and time. Behavior, mood, and affect are within normal limits. Vital Signs: 00:10 BP 153 / 85; Pulse 78; Resp 18; Temp 98.5(O); Pulse Ox 99% on R/A; Weight 117.48 kg; lp1 Height 5 ft. 2 in. (157.48 cm); Pain 0/10; 00:30 BP 136 / 82; Pulse 76; Resp 17; Pulse Ox 98% on R/A; lp1 01:00 BP 126 / 67; Pulse 75; Resp 20; Pulse Ox 98% on R/A; lp1 01:53 BP 136 / 71; Pulse 74; Resp 20; Pulse Ox 98% on R/A; Pain 0/10; lp1 00:10 Body Mass Index 47.37 (117.48 kg, 157.48 cm) lp1 MDM: 00:10 Patient medically screened. la1 01:39 Data reviewed: vital signs, nurses notes, lab test result(s), EKG, radiologic studies, la1 I have discussed the patient's presentation/case with the attending Emergency Department Physician; and as a result, I will discharge patient. Data interpreted: Pulse oximetry: on room air is 98 %. Test interpretation: by ED physician or midlevel provider: ECG. Counseling: I had a detailed discussion with the patient and/or guardian regarding: the historical points, exam findings, and any diagnostic results supporting the discharge/admit diagnosis, lab results, radiology results, the need for outpatient follow up, a family practitioner. Special discussion: Based on the patient's history, exam, and Dx evaluation, there is no indication for emergent intervention or inpatient Tx. It is understood by the patient/guardian that if the Sx's persist or worsen they need to return immediately for re-evaluation. I discussed with the patient/guardian in detail that at this point there is no indication for admission to the hospital. It is understood, however, that if the symptoms persist or worsen the patient needs to return immediately for re-evaluation. 05/14 00:18 Order name: Basic Metabolic Panel; Complete Time: 05/14 00:18 Order name: CBC with Diff; Complete Time: :05/14 00:18 Order name: LFT's; Complete Time: 05/14 00:18 Order name: Magnesium; Complete Time: 05/14:18 Order name: Troponin (emerg Dept Use Only); Complete Time: 05/14 00:18 Order name: XRAY Chest (1 view) la05/14 00:18 Order name: EKG; Complete Time: 00:20 05/14 00:18 Order name: Cardiac monitoring; Complete Time: 00:36 la1 12/12 00:18 Order name: EKG - Nurse/Tech; Complete Time: 00:36 la1 05/14 00:18 Order name: Labs collected and sent; Complete Time: 00:59 la1 05/14 00:18 Order name: O2 Per Protocol; Complete Time: 00:36 la1 05/14 00:18 Order name: O2 Sat Monitoring; Complete Time: 00:36 la1 Administered Medications: No medications were administered Disposition: 07:24 Co-signature as Attending Physician, Chase Hernandez MD I agree with the assessment and wa plan of care. Disposition: 05/14/19 01:41 Discharged to Home. Impression: Palpitations. - Condition is Stable. - Discharge Instructions: Palpitations. - Medication Reconciliation Form, Thank You Letter form. - Follow up: Private Physician; When: 2 - 3 days; Reason: Recheck today's complaints, Re-evaluation by your physician. - Problem is new. - Symptoms have improved. Signatures: Dispatcher [employer] EDNishi Talamantes RN RN lp1 Marco Conley, SENIOR TERADATA DEVELOPER-C SENIOR TERADATA DEVELOPER-Cla1 Chase Hernandez MD MD ny Corrections: (The following items were deleted from the chart) 01:54 01:41 05/14/2019 01:41 Discharged to Home. Impression: Palpitations. Condition is lp1 Stable. Forms are Medication Reconciliation Form, Thank You Letter, Antibiotic Education, Prescription Opioid Use. Follow up: Private Physician; When: 2 - 3 days; Reason: Recheck today's complaints, Re-evaluation by your physician. Problem is new. Symptoms have improved. la1
--- NOTE | 2019-05-14 01:42 | ER ---
Nurse's Notes [facility] Name: Linda Verdin Age: 49 yrs Sex: Female : 1970 Arrival Date: 05/14/2019 Time: 00:07 Bed 5 Private MD: Diagnosis: Palpitations Presentation: 05/14 00:10 Presenting complaint: Patient states: "I have been feeling my PVC's the last couple of lp1 days but I feel like it's gotten worse tonight"; Denies any shortness of breath, chest pain, states feeling PVC's when lying still. 00:10 Transition of care: patient was not received from another setting of care. Onset of lp1 symptoms was May 14, 2019. Risk Assessment: Do you want to hurt yourself or someone else? Patient reports no desire to harm self or others. Initial Sepsis Screen: Does the patient meet any 2 criteria? No. Patient's initial sepsis screen is negative. Does the patient have a suspected source of infection? No. Patient's initial sepsis screen is negative. Care prior to arrival: None. 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 - Social history:: Smoking status: Patient/guardian denies using tobacco. - Ebola Screening: : No symptoms or risks identified at this time. Screenin:37 Abuse screen: Denies threats or abuse. Denies injuries from another. Nutritional lp1 screening: No deficits noted. Tuberculosis screening: No symptoms or risk factors identified. Fall Risk None identified. Assessment: 00:20 General: Appears in no apparent distress. Behavior is cooperative, appropriate for age. lp1 Pain: Denies pain. Neuro: Level of Consciousness is awake, alert, obeys commands, Oriented to person, place, time, situation. Cardiovascular: Reports palpitations, Patient's skin is warm and dry. Respiratory: Respiratory effort is even, unlabored, Respiratory pattern is regular, Breath sounds are clear bilaterally. GI: Abdomen is non-distended, obese. : No signs and/or symptoms were reported regarding the genitourinary system. EENT: No signs and/or symptoms were reported regarding the EENT system. Derm: Skin is pink, warm \\T\\ dry. Musculoskeletal: No deficits noted. 01:00 Reassessment: Patient appears in no apparent distress at this time. Patient taking own lp1 home med of Propanolol at this time. 01:53 Reassessment: Patient appears in no apparent distress at this time. Patient is alert, lp1 oriented x 3, equal unlabored respirations, skin warm/dry/pink. Patient states feeling better. Patient states symptoms have improved. Vital Signs: 00:10 BP 153 / 85; Pulse 78; Resp 18; Temp 98.5(O); Pulse Ox 99% on R/A; Weight 117.48 kg; lp1 Height 5 ft. 2 in. (157.48 cm); Pain 0/10; 00:30 BP 136 / 82; Pulse 76; Resp 17; Pulse Ox 98% on R/A; lp1 01:00 BP 126 / 67; Pulse 75; Resp 20; Pulse Ox 98% on R/A; lp1 01:53 BP 136 / 71; Pulse 74; Resp 20; Pulse Ox 98% on R/A; Pain 0/10; lp1 00:10 Body Mass Index 47.37 (117.48 kg, 157.48 cm) lp1 ED Course: 00:07 Patient arrived in ED. ag3 00:10 Nishi Dang, CHRISTY is Primary Nurse. lp1 00:10 Marco Conley FNP-C is PHCP. la1 00:10 Chase Hernandez MD is Attending Physician. la1 00:33 Triage completed. lp1 00:34 Arm band placed on. lp1 00:37 XRAY Chest (1 view) In Process Unspecified. EDMS 00:38 Patient has correct armband on for positive identification. Placed in gown. Bed in low lp1 position. Call light in reach. classroom monitor on. Pulse ox on. NIBP on. 01:53 No provider procedures requiring assistance completed. Patient did not have IV access lp1 during this emergency room visit. Administered Medications: No medications were administered Outcome: 01:41 Discharge ordered by MD. laKrystle 01:54 Discharged to home ambulatory. lp1 01:54 Condition: good 01:54 Discharge instructions given to patient, Instructed on discharge instructions, follow up and referral plans. Demonstrated understanding of instructions, follow-up care. 01:54 Patient left the ED. lp1 Signatures: Dispatcher [employer] EDNishi Talamantes RN RN lp1 Marco Conley, STITCHING MACHINE FEEDER OR OFFBEARER-C STITCHING MACHINE FEEDER OR OFFBEARER-Cla1 Basia Morin ag3
--- NOTE | 2019-05-14 08:18 | RAD REPORT ---
EXAM DESCRIPTION: RAD - Chest Single View - 05/14/2019 12:33 am CLINICAL HISTORY: palpitation Chest pain. COMPARISON: Chest Pa And Lat (2 Views) dated 01/17/2019; Chest Single View dated 06/21/2016; Chest Sin gle View dated 06/15/2016 FINDINGS: Portable technique limits examination quality. The lungs are grossly clear. The heart is normal in size. No displaced fractures. IMPRESSION: No acute intrathoracic process suspected.
--- NOTE | 2019-05-14 08:22 | EKG ---
Test Date: 2019-05-14 Test Time: 00:20:48 Survey Interviewer: HANDY MEASUREMENT RESULTS: Intervals: Rate: 68 AK: 186 QRSD: 84 QT: 398 QTc: 423 [place]: P: 39 AK: 186 QRS: 20 T: 41 INTERPRETIVE STATEMENTS: Normal sinus rhythm Normal ECG Compared to ECG 07/16/2018 15:42:35 Left ventricular hypertrophy no longer present Electronically Signed On 05-14-19 08:21:36 JOURNEYMAN PAINTER by Jarrod Davis
[2019-05-14 09:52] VITALS: TEMP 98.5
[2019-05-14 09:54] VITALS: O2SAT 98
[2019-05-14 09:57] VITALS: BP 136/71
== END 2019-05-14 01:54 | disposition home or self-care (01) ==
LOC: ER 00:04
DX: R00.2 Palpitations (principal); I10 Essential (primary) hypertension; F41.9 Anxiety disorder, unspecified; F32.9 Major depressive disorder, single episode, unspecified; Z88.0 Allergy status to penicillin
CPT/HCPCS: 36415; 71045; 80048; 80076; 83735; 84484; 85025; 93005; 99284

== ENCOUNTER 2022-07-20 15:29 | Emergency (ER) | payer BC, OTHER ==
--- OUTSIDE RECORDS SUMMARY | 2022-07-20 15:32 | XMS REPORT | Continuity of Care Document ---
:1970 Author Organization [facility] t Address [address] [place] [address] Care Team Providers Name Role Phone Jha ACOSTA, Jordyn Primary Care Physician Harriet HUA, Moriah Gutierrez Attending Clinician Petra ACOSTA, Magdalena Attending Clinician REINA KAY Attending Clinician Unavailable BUBBA THOMAS Attending Clinician Unavailable Payers Payer Name Policy Type Policy Number Effective Date Expiration Date S [facility] [id number] 2021 RESOURCES CHOICE 00:00:00 POS Problems This patient has no known problems. Allergies, Adverse Reactions, Alerts Allergy Allergy Status Severity Reaction(s) Onset Inactive Treating Comm ents Source Name Type Date Date Clinician PENICILL Allergy Active 2020-[address] [facility] Penicill Propensi Active 2020-[address] [facility] [address] [facility] ty [facility] adverse [facility]: Medical reaction 00 Center s Penicill Propensi Active Other (See Me thodi ins ty to Comments) 08-29 st adverse 00:00: Hospita reaction 00 l s to drug Family History Family Member Diagnosis Comments Start Date Stop Date Source Natural father Anxiety disorder [facility] Natural father Depression [facility] Natural father Hypertension [facility] Paternal grandmother Emphysema [facility] Social History Social Habit Start Date Stop Date Quantity Comments Source History of Current smoker [facility] tobacco use Hospital History SDOH [facility] Alcohol Std Hospital Drinks History SDOH [facility] Alcohol Binge Hospital History [facility] SASHA Lopez Alcohol Comment Medical C enter Alcohol intake 2021-06-19 2021-06-19 Lifetime [facility] 00:00:00 00:00:00 non-drinker Hospital (finding) Tobacco use and 2020-11-21 2020-11-21 Smokeless tobacco Me [facility]odist exposure 00:00:00 00:00:00 non-user Hospital History SDOH 2020-11-21 2020-11-21 1 [facility] Alcohol Frequency 00:00:00 00:00:00 Hospita l Education 2020-11-21 2020-11-21 16 [facility] 00:00:00 00:00:00 Hospital Sex Ass[birth year] At [birth year] SAS[facility] 00:00:00 00:00:00 [facility] Center Smoking Status Start Date Stop Date Source Never smoker SASHA [facility] Ex-smoker 2020-11-21 00:00:00 2020-11-21 00:00:00 [facility] Medications Ordered Filled Start Stop Current Ordering Indication Dosage Frequency Signature Comments Components Source Medication Medication Date Date Medication? Clinician (SIG) Name Name propranoloL Yes TAKE 1 Meth stephanie (INDERAL) 1-[address] 10 MG 00:00: MOUTH Hospita tablet 00 THREE l TIMES A DAY olmesartan 2021-06 Yes TAKE 1 Metho di (BENICAR) 2-[address] 40 MG 00:00: MOUTH Hospita tablet 00 EVERY DAY l dicyclomine Yes Method i HCl (BENTYL 17 st IM) 14:07: Hospita 19 l clonAZEPAM Yes [facility] (KlonoPIN) 17 st 0.5 MG 14:07: Hospita disintegrat 19 l ing tablet ciprofloxac Yes [facility] in (Cipro) 17 st 500 mg/5 mL 14:07: Hospit a suspension 19 l pantoprazol Yes 40mg QD Take 40 mg [facility] e -[address] (PROTONIX) 14:07: daily. Hospi ta 40 MG EC 19 l tablet metroNIDAZO Yes 500mg Q.[id number] Take 500 [facility] LE (FLAGYL) 1-17 [id number] mg by s t 500 MG 14:07: 3D mouth 3 Hospita tablet 19 (three) l times a day. montelukast Yes Method i (SINGULAIR) -17 st 10 mg 14:07: Hospita tablet 19 l propranoloL 2022- No 10mg Q.[id number] Take 1 [facility] (INDERAL) 06-19 01-03 [id number] tablet (10 st 10 MG 00:00: 00:00 3D mg total) Hospit a tablet 00 :00 by mouth 3 l (three) times a day. olmesartan No 40mg QD Take 1 Meth stephanie (BENICAR) 06-19 1206 tablet (40 st 40 MG 00:00: 00:00 mg total) Hospit a tablet 00 :00 by mouth l daily. sertraline 2020-06 Yes 100mg QD Take [address] (ZOLOFT) 1-02 mg by [facility] 100 MG 16:19: mouth Medical tablet 53 daily. [place] olmesartan 2020-06 Yes 20mg QD Take [address] (BENICAR) 02 by mouth [facility] 20 MG 16:19: daily. Medical tablet 53 [place] levocetiriz 2020-06 Yes 5mg QD Take [address] ine (XYZAL) 02 by mouth [facility] s 5 MG tablet 16:19: every Medic al 53 evening. [place] famotidine 2020-06 Yes 20mg Q.5D Take [address] (PEPCID) 20 -02 by mouth 2 Latesha kes MG tablet 16:19: (two) Medical 53 times Center daily. propranoloL 2020-06 Yes 10mg Q.67094773 Take [address] (INDERAL) 1-02 [id number] by mouth 3 [facility] 10 MG 16:19: 3D (three) Medical tablet 53 times Center daily. clonazePAM 2020-06 Yes .5mg Take 0.[address] (KlonoPIN) 1-02 mg by [facility] 0.5 MG 16:19: mouth 2 Medical tablet 53 (two) Center times daily as needed for Anxiety. hydrOXYzine 2020-06 Yes 25mg Take [address] (ATARAX) 25 -02 by mouth 3 Latesha kes MG tablet 16:19: (three) Medic al 53 times Center daily as needed for Itching. Vital Signs Vital Name Observation Time Observation Value Comments Source HEIGHT 2021-04-04 15:50:00 157.5 cm WEIGHT 2021-04-04 15:50:00 113.399 kg HEIGHT 2021-04-04 15:50:00 157.5 cm WEIGHT 2021-04-04 15:50:00 113.399 kg Procedures This patient has no known procedures. Plan of Care Planned Activity Planned Date Details Comments Source Future Scheduled 2022-07-19 Hepatitis C screening [facility] Test 14:12:59 (procedure) [code = 404756486] Future Scheduled 2022-07-19 COLONOSCOPY SCREENING [facility] Test 14:12:59 [code = COLONOSCOPY SCREENING] Future Scheduled 2022-07-19 COVID-19 VACCINE (3 - [facility] Test 14:12:59 Booster for Moderna series) [code = COVID-19 VACCINE (3 - Booster for Moderna series)] Future Scheduled 2022-07-19 BREAST CANCER [facility] Test 14:12:59 SCREENING [code = BREAST CANCER SCREENING] Future Scheduled 2022-07-19 INFLUENZA VACCINE Method [facility] Test 14:12:59 [code = INFLUENZA VACCINE] Future Scheduled 2022-07-19 SHINGLES VACCINES (1 Met [facility] Test 14:12:59 of 2) [code = SHINGLES VACCINES (1 of 2)] Future Scheduled 2022-07-19 Screening for [facility] Test 14:12:59 malignant neoplasm of cervix (procedure) [code = 620245718] Future Scheduled 2022-06-[address] [facility] Test 00:00:00 (12+) [code = [facility] DEPRESSION SCREENING (12+)] Future Scheduled 2022-02-01 INFLUENZA VACCINE (#1) [facility] Test 00:00:00 [code = INFLUENZA Medical Ce nter VACCINE (#1)] Future Scheduled 2022-01-13 SHINGLES VACCINES ([address] [facility] Test 00:00:00 of 2) [code = SHINGLES Medic al Center VACCINES (1 of 2)] Future Scheduled 2017-01-[address] [facility] Test 00:00:00 (procedure) [code = [facility] [id number]] Future Scheduled 1993-01-[address] [facility] Test 00:[facility]:00 malignant neoplasm of Medica l Center cervix (procedure) [code = 038080600] Future Scheduled 1991-01-13 DTAP/TDAP/TD VACCINES [facility] Test 00:00:00 (1 - Tdap) [code = Medical C enter DTAP/TDAP/TD VACCINES (1 - Tdap)] Future Scheduled 1990-01-13 HEPATITIS C SCREENING [facility] Test 00:00:00 [code = HEPATITIS C Medical Center SCREENING] Future Scheduled [address] [facility] Test 00:00:00 Counseling and Medical Cente r Screening (12+) [code = Tobacco Cessation Counseling and Screening (12+)] Future Scheduled 1970 COVID-19 VACCINE (#1) [facility] Test 00:00:00 [code = COVID-[address] VACCINE (#1)] Future Scheduled [address] [facility] Test 00:00:00 malignant neoplasm of Medica l Center breast (procedure) [code = 442708142] Future Scheduled [address] [facility] Test 00:00:00 (combo) [code = CT Medical C enter Colonography (combo)] Future Scheduled [address] [facility] Test 00:00:00 malignant neoplasm of Medica l Center colon (procedure) [code = 725960672] Future Scheduled [address] [facility] Test 00:00:00 malignant neoplasm of Medica l Center colon (procedure) [code = 052464848] Future Scheduled [address] [facility] Test 00:00:00 malignant neoplasm of Medica l Center colon (procedure) [code = 688191977] Future Scheduled [address] [facility] Test 00:00:00 malignant neoplasm of Medica l Center colon (procedure) [code = 489003004] Future Scheduled 1970 Sigmoidoscopy [code = [facility] Test 00:[facility]:00 Sigmoidoscopy] Medical Cente r Encounters Start End Encounter Admission Attending Care Care Encounter Source Date/Time Date/Time Type Type Clinicians Facility Department ID 2022-06-02 2022-06-02 Refill Larios, [id number] [facility] 00:00:00 00:00:00 Moriah [address]da [id number] 3.430.2.7 Hospit a .3.117661 l .8 2022-05-02 2022-05-02 Refill Petra, 1.2.840.1 [id number] [facility] 00:00:00 00:00:[id number] 3.430.2.7 Hospit a .3.696200 l .8 2021-06-19 2021-06-19 Outpatient LARIOS, [facility] [id number] [place] 00:00:00 00:00:00 MORIAH 127 Method i 2021-05-17 2021-05-17 Outpatient ANNAAPULI, [facility] [id number] [place] 00:00:00 00:00:00 MAGDALENA 428 Method i 2021-05-10 2021-05-10 Outpatient KUNAPULI, [facility] [id number] [place] 00:00:00 00:00:00 MAGDALENA 339 Method i 2021-05-01 2021-05-01 Outpatient DESPLINTER, [facility] [id number] [place] 00:00:00 00:00:00 REINA 896 Method i 2021-04-04 2021-04-04 Emergency ER BOSS, [facility] Emergency [id number] [facility] 15:53:00 20:11:00 BUBBA 2021-03-07 2021-03-07 Outpatient KUNAPULI, [facility] [id number] [place] 00:00:00 00:00:00 MAGDALENA 352 Method i 2020-12-26 2020-12-26 Emergency [facility] Sneha [id number] [place] 00:00:00 00:00:00 621 Method i 2020-11-28 2020-11-28 Outpatient DESPLINTER, [facility] [id number] [place] 00:00:00 00:00:00 REINA 584 Method i 2020-11-28 2020-11-28 Outpatient DESPLINTER, [facility] [id number] [place] 00:00:00 00:00:00 REINA [address] 2020-11-21 2020-11-21 Outpatient ELIZA [facility] [id number] [place] 00:00:00 00:00:00 REINA [address] Results Test Description Test Time Test Comments Results Result Sourc e Comments CT, ABDOMEN 2021-04-04 Reason for 19:17:00 exam:->diffuse abd pain, [facility] ASHLEE DORADO : 1970 Sex: F FINAL REPORT CT, ABDOMEN \T\ PELVIS, WITH IV CONTRAST HISTORY: Abdominal pain, acute, nonlocalizeddiffuse abd pain, diarrhea COMPARISON: None TECHNIQUE: CT of the abdomen and pelvis WITH intravenous contrast and WITHOUT oral contrast. The examination was performed according to the departmental dose-optimization program, which includes automated exposure control, adjustment of the mA and/or kV according to patient size and/or use of iterative reconstruction technique. FINDINGS: Lower thorax: Trace bilateral pleural effusions.Liver: Mildly decreased in attenuation diffusely. No solid mass.Gallbladder and bile ducts: Unremarkable.Spleen: Markedly enlarged.Pancreas: Unremarkable.Adrenals: UnremarkableKidneys and ureters: Unremarkable.Bowel: Normal appendix. Nondilated bowel with no wall thickening. Colonic diverticulosis without associated colonic wall thickening or surrounding stranding.Bladder: Unremarkable.Reproductiv e organs: A unilocular simple appearing 6.5 cm right adnexal cyst. A solid appearing 3.6 cm lesion in the left adnexa is most likely a subserosal fibroid is contiguous with the left half of the uterus.Lymph nodes: Unremarkable.Peritoneum: Unremarkable.Vessels: Mild atherosclerotic calcifications.Abdominal wall: Small fat-containing right greater than left inguinal hernia.Bones: Mild degenerative changes of the lumbar spine worst at L5-S1. IMPRESSION: 1.No acute findings in the abdomen or pelvis. 2.Colonic diverticulosis. 3.Splenomegaly and suggestion of hepatic steatosis. 4.A unilocular simple appearing 6.5 cm right adnexal cyst. Recommend ultrasound follow-up in 3-6 months. 5.A solid appearing 3.6 cm lesion in the left adnexa is most likely a subserosal fibroid. Pelvic ultrasound could be performed today to confirm this. Signed: Vielka Mart MDReport Verified Date/Time: 04/04/2021 19:17:10 Reading Location: [address] Transitional Reading Room REHENSIVE METABOLIC PANEL 2021-04-04 17:21:46 Test Item Value Reference Range Interpretation Comme nts TOTAL PROTEIN (BEAKER) 7.3 gm/dL 6.0-8.5 (test code = 770) ALBUMIN (BEAKER) (test code 4.2 g/dL 3.5-5.0 = 1145) ALKALINE PHOSPHATASE 47 U/L 30-115 (BEAKER) (test code = 346) BILIRUBIN TOTAL (BEAKER) 0.5 mg/dL 0.1-1.2 (test code = 377) SODIUM (BEAKER) (test code 141 meq/L 135-148 = 381) POTASSIUM (BEAKER) (test 3.7 meq/L 3.6-5.5 code = 379) CHLORIDE (BEAKER) (test 107 meq/L 98-106 H code = 382) CO2 (BEAKER) (test code = 23 meq/L 20-29 355) BLOOD UREA NITROGEN 6 mg/dL 10-26 L (BEAKER) (test code = 354) CREATININE (BEAKER) (test 0.66 mg/dL 0.50-1.20 code = 358) GLUCOSE RANDOM (BEAKER) 110 mg/dL 70-110 (test code = 652) CALCIUM (BEAKER) (test code 9.3 mg/dL 8.5-10.5 = 697) AST (SGOT) (BEAKER) (test 29 U/L 5-40 code = 353) ALT (SGPT) (BEAKER) (test 30 U/L 5-50 code = 347) EGFR (BEAKER) (test code = 95 mL/min/1.73 sq m ESTIMATED GFR IS NOT 1092) ACCURATE CRE ATININE CLEARANCE IN LA EDICTING GLOMERULAR FILT RATION RATE. ESTIMATED GFR IS NOT APPLICABLE FOR DIALYSIS PATIENTS. Line Haul Driver ID - BRUCEURINALYSIS W/ [id number] 17:18:44 Test Item Value Reference Range Interpretation Comments COLOR (BEAKER) (test code = Yellow 470) CLARITY (BEAKER) (test code = Clear 469) SPECIFIC GRAVITY UA (BEAKER) 1.015 1.001-1.035 (test code = 468) PH UA (BEAKER) (test code = 6.0 5.0-8.0 467) PROTEIN UA (BEAKER) (test code Negative Negative = 464) GLUCOSE UA (BEAKER) (test code Negative Negative = 365) KETONES UA (BEAKER) (test code Negative Negative = 371) BILIRUBIN UA (BEAKER) (test Negative Negative code = 462) BLOOD UA (BEAKER) (test code = Negative Negative 461) NITRITE UA (BEAKER) (test code Negative Negative = 465) LEUKOCYTE ESTERASE UA (BEAKER) Negative Negative (test code = 466) UROBILINOGEN UA (BEAKER) (test 0.2 mg/dL 0.2-1.0 code = 463) BACTERIA (BEAKER) (test code = Occasional 517) RBC UA-MANUAL (BEAKER) (test None Seen /HPF code = 1659) WBC UA-MANUAL (BEAKER) (test <5 /HPF code = 1661) SQUAMOUS EPITHELIAL MANUAL 5-10 /HPF (BEAKER) (test code = 1663) SOURCE(BEAKER) (test code = 2795) [id number] 17:11:36 Test Item Value Reference Range Interpretation Comments LIPASE (BEAKER) (test code = 749) 25 U/L 6-51 Line Haul Driver ID - BRUCEHCG, SERUM, [id number] 17:03:54 Test Item Value Reference Range Interpretation Comments TEST SERUM Negative \[id number] 2026/08-31-2022 (BEAKER) (test code = \ 584) CBC W/PLT COUNT & AUTO [id number] 16:53:29 Test Item Value Reference Range Interpretation Comments WHITE BLOOD CELL COUNT (BEAKER) 5.7 K/ L 4.0-10.0 (test code = 775) RED BLOOD CELL COUNT (BEAKER) 4.48 M/ L 4.00-5.00 (test code = 761) HEMOGLOBIN (BEAKER) (test code = 13.7 GM/DL 12.0-15.5 410) HEMATOCRIT (BEAKER) (test code = 41.7 % 36.0-46.0 411) MEAN CORPUSCULAR VOLUME (BEAKER) 93.1 fL 82.0-99.0 (test code = 753) MEAN CORPUSCULAR HEMOGLOBIN 30.6 pg 27.0-33.0 (BEAKER) (test code = 751) MEAN CORPUSCULAR HEMOGLOBIN CONC 32.9 GM/DL 32.0-36.0 (BEAKER) (test code = 752) RED CELL DISTRIBUTION WIDTH 13.7 % 12.0-15.0 (BEAKER) (test code = 412) PLATELET COUNT (BEAKER) (test 228 K/CU MM 150-430 code = 756) MEAN PLATELET VOLUME (BEAKER) 10.6 fL 6.0-11.5 (test code = 754) NUCLEATED RED BLOOD CELLS 0 /100 WBC 0-0 (BEAKER) (test code = 413) NEUTROPHILS RELATIVE PERCENT 50 % (BEAKER) (test code = 429) LYMPHOCYTES RELATIVE PERCENT 32 % (BEAKER) (test code = 430) MONOCYTES RELATIVE PERCENT 14 % (BEAKER) (test code = 431) EOSINOPHILS RELATIVE PERCENT 3 % (BEAKER) (test code = 432) BASOPHILS RELATIVE PERCENT 0 % (BEAKER) (test code = 437) NEUTROPHILS ABSOLUTE COUNT 2.84 K/ L 1.80-8.00 (BEAKER) (test code = 670) LYMPHOCYTES ABSOLUTE COUNT 1.83 K/ L 1.48-4.50 (BEAKER) (test code = 414) MONOCYTES ABSOLUTE COUNT (BEAKER) 0.81 K/ L 0.00-1.30 (test code = 415) EOSINOPHILS ABSOLUTE COUNT 0.15 K/ L 0.00-0.50 (BEAKER) (test code = 416) BASOPHILS ABSOLUTE COUNT (BEAKER) 0.01 K/ L 0.00-0.20 (test code = 417) IMMATURE GRANULOCYTES-RELATIVE 1 % 0-0 H PERCENT (BEAKER) (test code = 2801)
[2022-07-20 16:24] LABS: Absolute Lymphocytes (CBC) 3.7 K/uL (0.7-4.9); Hematocrit 37.8 % (36.0-45.0); MCV 91.3 fL (80-100); MPV 8.7 fL (7.6-11.3); RBC Red Blood Cell Count 4.14 M/uL (3.86-4.86)
[2022-07-20 17:04] LABS: Albumin 3.5 g/dL (3.4-5.0); Bilirubin Total 0.4 mg/dL (0.2-1.0); Potassium 3.8 mmol/L (3.5-5.1); Protein, Total 6.8 g/dL (6.4-8.2)
--- NOTE | 2022-07-20 17:10 | EDPHYS ---
Physician Documentation [facility] Name: Linda Verdin Age: 52 yrs Sex: Female : 1970 Arrival Date: 07/20/2022 Time: 15:32 Bed 7 Private MD: EDEL Physician Betito Munoz HPI: 07/20 16:33 This 52 yrs old Female presents to ER via Ambulatory with complaints of Vertigo, Ear rt Pain. 16:33 Patient with history of multiple episodes of vertigo presents to the ED with vertigo rt this morning that has since resolved. The patient does state that she has had a chronic left ear pain, worse since today with feelings of fluid in the ear. Radiates down to her jaw. The patient reports a sore throat. The patient also reports a very mild epigastric pain that is improving she had mild nausea, none currently. Denies other acute complaints at this time. Symptoms are mild in severity, no other aggravating or alleviating factors.. Historical: - Allergies: 15:39 PENICILLINS; iw - PMHx: 15:39 Anxiety; Depression; Diverticulitis; Hypertension; palpitations; Sleep Apnea; SVT; iw Tachycardia; - Immunization history:: Adult Immunizations. - Social history:: Smoking status: . - Family history:: not pertinent. ROS: 16:33 Constitutional: Negative for fever, chills, and weight loss, Neck: Negative for injury, rt pain, and swelling, Cardiovascular: Negative for chest pain, palpitations, and edema, Respiratory: Negative for shortness of breath, cough, wheezing, and pleuritic chest pain, Skin: Negative for injury, rash, and discoloration, Neuro: Negative for headache, weakness, numbness, tingling, and seizure, Psych: Negative for depression, anxiety, suicide ideation, homicidal ideation, and hallucinations. 16:33 ENT: Positive for Otalgia, negative for discharge. 16:33 Abdomen/GI: Positive for abdominal pain, nausea. 16:33 Neuro: Positive for Vertigo, negative for weakness. Exam: 16:33 Constitutional: This is a well developed, well nourished patient who is awake, alert, rt and in no acute distress. Chest/axilla: Normal chest wall appearance and motion. Nontender with no deformity. No lesions are appreciated. Cardiovascular: Regular rate and rhythm with a normal S1 and S2. No gallops, murmurs, or rubs. Normal PMI, no JVD. No pulse deficits. Respiratory: Lungs have equal breath sounds bilaterally, clear to auscultation and percussion. No rales, rhonchi or wheezes noted. No increased work of breathing, no retractions or nasal flaring. Abdomen/GI: Soft, non-tender, with normal bowel sounds. No distension or tympany. No guarding or rebound. No evidence of tenderness throughout. Skin: Warm, dry with normal turgor. Normal color with no rashes, no lesions, and no evidence of cellulitis. MS/ Extremity: Pulses equal, no cyanosis. Neurovascular intact. Full, normal range of motion. Neuro: Awake and alert, GCS 15, oriented to person, place, time, and situation. Cranial nerves II-XII grossly intact. Motor strength 5/5 in all extremities. Sensory grossly intact. Cerebellar exam normal. Normal gait. Psych: Awake, alert, with orientation to person, place and time. Behavior, mood, and affect are within normal limits. 16:33 ENT: Left TM is bulging with erythema. Posterior pharyngeal erythema with exudates are present, no tonsillar hypertrophy. 16:33 ECG was reviewed by the Attending Physician. Vital Signs: 15:39 BP 141 / 80; Pulse 65; Resp 16; Pulse Ox 97% on R/A; Weight 117.93 kg; Height 5 ft. 2 iw in. (157.48 cm); Pain 6/10; 16:44 BP 138 / 78; Pulse 62; Resp 16; Pulse Ox 99% ; ko1 15:39 Body Mass Index 47.55 (117.93 kg, 157.48 cm) iw MDM: 15:43 Patient medically screened. rt 17:11 Differential diagnosis: otitis media, Central vertigo, peripheral vertigo. Data rt reviewed: vital signs, nurses notes, lab test result(s), EKG, radiologic studies. Consideration of Admission/Observation Escalation of care including admission/observation considered. Test considered but Not performed: CT: Patient with very benign abdominal examination, unremarkable labs, shared decision-making was performed, believe patient is at low risk, not requiring CT scan of the abdomen. Patient with no focal neurologic deficits, previous episodes of peripheral vertigo, CT scan of the head not indicated.. Counseling: I had a detailed discussion with the patient and/or guardian regarding: the historical points, exam findings, and any diagnostic results supporting the discharge/admit diagnosis, lab results, radiology results, the need for outpatient follow up. 07/20 15:54 Order name: CBC with Diff; Complete Time: 17:02 rt 07/20 15:54 Order name: CMP; Complete Time: 17:06 rt 07/20 15:54 Order name: Lipase; Complete Time: 17: rt 07/20 15:54 Order name: Troponin High Sensitivity; Complete Time: 17:06 rt 07/20 15:54 Order name: EKG; Complete Time: 15:55 rt 07/20 15:54 Order name: EKG - Nurse/Tech; Complete Time: 16:10 rt EC:33 Rate is 58 beats/min. Rhythm is regular, Normal Sinus Rhythm with No ectopy. QRS Hagan rt is Normal. PA interval is normal. QRS interval is normal. QT interval is normal. No Q waves. T waves are Normal. No ST changes noted. Administered Medications: No medications were administered Disposition Summary: 07/20/22 17:09 Discharge Ordered Location: Home rt Problem: an ongoing problem rt Symptoms: have improved rt Condition: Stable rt Diagnosis - Acute serous otitis media, left ear rt - Other peripheral vertigo, left ear rt Followup: rt - With: Private Physician - When: 2 - 3 days - Reason: Discharge Instructions: - Discharge Summary Sheet rt - Benign Positional Vertigo rt - Otitis Media, Adult rt Forms: - Medication Reconciliation Form rt - Thank You Letter rt - Antibiotic Education rt - Prescription Opioid Use rt Prescriptions: - azithromycin 250 mg Oral tablet - take 1 tablet by ORAL route once daily Take 2 tablets for the first dose, then rt 1 tablet for every dose after.; 6 tablet; Refills: 0, Product Selection Permitted Signatures: Dispatcher [employer] Soha Aragon RN RN Rebeca Barajas RN RN hb [place], Ryan, MD MD rt
--- NOTE | 2022-07-20 17:10 | ER ---
Nurse's Notes [facility] Name: Linda Verdin Age: 52 yrs Sex: Female : 1970 Arrival Date: 07/20/2022 Time: 15:32 Bed 7 Private MD: Diagnosis: Acute serous otitis media, left ear;Other peripheral vertigo, left ear Presentation: 07/20 15:37 Chief complaint: Patient states: had an episode of vertigo. the room started spinning, iw I got hot a sweaty and sick to my stomach , has had previous episodes in the past , happened about 45 minutes , symptoms have improved but not resolved, also has pain in left ear. Coronavirus screen: At this time, the client does not indicate any symptoms associated with coronavirus-19. Ebola Screen: Patient negative for fever greater than or equal to 101.5 degrees Fahrenheit, and additional compatible Ebola Virus Disease symptoms Patient denies exposure to infectious person. Patient denies travel to an Ebola-affected area in the 21 days before illness onset. No symptoms or risks identified at this time. Initial Sepsis Screen: Does the patient meet any 2 criteria? No. Patient's initial sepsis screen is negative. Does the patient have a suspected source of infection? No. Patient's initial sepsis screen is negative. Risk Assessment: Do you want to hurt yourself or someone else? Patient reports no desire to harm self or others. Onset of symptoms was July 20, 2022. 15:37 Method Of Arrival: Ambulatory iw 15:37 Acuity: JOAQUINA 3 iw Historical: - Allergies: 15:39 PENICILLINS; iw - PMHx: 15:39 Anxiety; Depression; Diverticulitis; Hypertension; palpitations; Sleep Apnea; SVT; iw Tachycardia; - Immunization history:: Adult Immunizations. - Social history:: Smoking status: . - Family history:: not pertinent. Screenin:53 [facility] ED Fall Risk Assessment (Adult) Score/Fall Risk Level 0 - 2 = Low Risk hb Oriented to surroundings, Maintained a safe environment, Educated pt \T\ family on fall prevention, incl call for assistance when getting out of bed. Abuse screen: Denies threats or abuse. Denies injuries from another. Nutritional screening: No deficits noted. Tuberculosis screening: No symptoms or risk factors identified. Assessment: 16:18 General: Appears in no apparent distress. comfortable, Behavior is calm, cooperative, ko1 appropriate for age. Pain: Denies pain. Neuro: Reports dizziness, Denies weakness blurred vision difficulty swallowing, paresthesias numbness headache photophobia diplopia. Cardiovascular: No deficits noted. Respiratory: No deficits noted. GI: No deficits noted. : No deficits noted. EENT: No deficits noted. Derm: No deficits noted. Musculoskeletal: No deficits noted. Vital Signs: 15:39 BP 141 / 80; Pulse 65; Resp 16; Pulse Ox 97% on R/A; Weight 117.93 kg; Height 5 ft. 2 iw in. (157.48 cm); Pain 6/10; 16:44 BP 138 / 78; Pulse 62; Resp 16; Pulse Ox 99% ; ko1 15:39 Body Mass Index 47.55 (117.93 kg, 157.48 cm) iw ED Course: 15:32 Patient arrived in ED. as 15:34 Betito Munoz MD is Attending Physician. rt 15:39 Triage completed. iw 15:39 Arm band placed on. iw 15:41 Shawna Almonte, CHRISTY is Primary Nurse. ko1 15:53 Patient has correct armband on for positive identification. hb 16:17 Troponin High Sensitivity Sent. ko1 16:17 Lipase Sent. ko1 16:17 CMP Sent. ko1 16:17 CBC with Diff Sent. ko1 16:18 Inserted saline lock: 22 gauge in left forearm, using aseptic technique. Blood ko1 collected. 16:43 Pulse ox on. NIBP on. Warm blanket given. ko1 16:44 Troponin High Sensitivity Sent. ko1 16:44 Lipase Sent. ko1 16:44 CMP Sent. ko1 17:07 No provider procedures requiring assistance completed. IV discontinued, intact, ko1 bleeding controlled, No redness/swelling at site. Pressure dressing applied. Administered Medications: No medications were administered Medication: 15:53 VIS not applicable for this client. hb Outcome: 17:09 Discharge ordered by . rt 17:11 Discharged to home ambulatory. ko1 17:11 Condition: stable 17:11 Discharge instructions given to patient, Instructed on discharge instructions, follow up and referral plans. medication usage, Demonstrated understanding of instructions, follow-up care, medications, Prescriptions given X 1. 17:14 Patient left the ED. ko1 Signatures: Shellie Marmolejo Irene, RN RN iw Rebeca Putnam RN RN Shawna Almonte RN RN ko1 Betito Munoz MD MD rt Corrections: (The following items were deleted from the chart) 15:40 15:39 Pulse 65bpm; Resp 16bpm; Pulse Ox 97% RA; 117.93 kg; Height 5 ft. 2 in.; BMI: iw 47.5; Pain 6/10; iw
[2022-07-20 17:37] VITALS: BP 138/78; O2SAT 99
--- NOTE | 2022-07-23 12:45 | EKG ---
Test Date: 2022-07-20 Test Time: 16:07:09 Funder: HB MEASUREMENT RESULTS: Intervals: Rate: 58 VA: 192 QRSD: 98 QT: 434 QTc: 426 Kellogg: P: 41 VA: 192 QRS: 34 T: 41 INTERPRETIVE STATEMENTS: Sinus bradycardia with sinus arrhythmia Otherwise normal ECG Compared to ECG 05/14/2019 00:20:48 Sinus rhythm no longer present Electronically Signed On 07-23-22 12:38:20 [employer] SUPERVISOR by Adi Sargent
== END 2022-07-20 17:14 | disposition home or self-care (01) ==
LOC: ER 15:29
DX: H65.02 Acute serous otitis media, left ear (principal); H81.392 Other peripheral vertigo, left ear; I10 Essential (primary) hypertension; Z88.0 Allergy status to penicillin
CPT/HCPCS: 36415; 80053; 83690; 84484; 85025; 93005; 99284

== ENCOUNTER 2022-11-07 01:20 | Emergency (ER) | payer BC ==
--- OUTSIDE RECORDS SUMMARY | 2022-11-07 01:25 | XMS REPORT | Continuity of Care Document ---
:1970 Author Organization [facility] t Address [address] [place] [address] Care Team Providers Name Role Phone Jah ACOSTA, Jordyn Primary Care Physician Harriet HUA, Moriah Gutierrez Attending Clinician Reji ACOSTA, Magdalena Attending Clinician REINA KAY Attending Clinician Unavailable BUBBA THOMAS Attending Clinician Unavailable Payers Payer Name Policy Type Policy Number Effective Date Expiration Date [facility] [id number] 2021 RESOURCES CHOICE 00:00:00 POS Problems This patient has no known problems. Allergies, Adverse Reactions, Alerts Allergy Allergy Status Severity Reaction(s) Onset Inactive Treating Comm ents Source Name Type Date Date Clinician Penicill Propensi Active 2020-[address] [facility] [address] [facility] reaction [facility] Center s PENICILL Allergy Active 2020-[address] [facility] [address] [facility] Center Penicill Propensi Active Other (See Me thodi ins ty to Comments) 08-29 st adverse 00:00: Hospita reaction 00 l s to drug Family History Family Member Diagnosis Comments Start Date Stop Date Source Natural father Anxiety disorder [facility] Natural father Depression [facility] Natural father Hypertension [facility] Paternal grandmother Emphysema [facility] Social History Social Habit Start Date Stop Date Quantity Comments Source Gender identity 2020-11-21 Identifies as [facility] 14:36:04 female gender Hospital (finding) Sexual orientation 2020-11-21 Heterosexual [facility] odist 14:36:04 (finding) Hospital History SDOH [facility] Alcohol Comment Medical C enter History SDOH [facility] Alcohol Std Drinks Medica [facility] Center History SDOH [facility] Alcohol Binge Medical [facility] [facility] History of tobacco Current smoker [facility] use Hospital Alcohol intake 2021-06-19 2021-06-19 Lifetime [facility] 00:00:00 00:00:00 non-drinker Hospital (finding) History of Social 2021-06-19 2021-06-[address] function 00:00:00 00:00:00 Hospital History SDOH 2021-04-04 2021-04-[address] [facility] Alcohol Frequency 00:00:00 00:00:00 Medical Center Education 2020-11-21 2020-11-21 16 [facility] 00:00:00 00:00:00 Hospital Tobacco use and 2020-11-21 2020-11-21 Smokeless tobacco [facility] exposure 00:00:00 00:00:00 non-user Hospital Sex Assigned At [address] [facility] 00[facility]00 Medical Center Smoking Status Start Date Stop Date Source Never smoker [facility] Ex-smoker 2020-11-21 00:00:00 2020-11-21 [facility] Medications Ordered Filled Start Stop Current Ordering Indication Dosage Frequency Signature Comments Components Source Medication Medication Date Date Medication? Clinician (SIG) Name Name propranoloL Yes TAKE 1 Meth stephanie (INDERAL) 1-[address] 10 MG 00:00: MOUTH Hospita tablet 00 THREE l TIMES A DAY propranoloL Yes TAKE 1 Meth stephanie (INDERAL) 1-[address] 10 MG 00:00: MOUTH Hospita tablet 00 THREE l TIMES A DAY olmesartan 2021-06 Yes TAKE 1 Metho di (BENICAR) 2-[address] 40 MG 00:00: MOUTH Hospita tablet 00 EVERY DAY l olmesartan 2021-06 Yes TAKE 1 Metho di (BENICAR) 2-[address] 40 MG 00:00: MOUTH Hospita tablet 00 EVERY DAY l montelukast 2022-0 Yes Method i (SINGULAIR) 1-17 st 10 mg 14:07: Hospita tablet 19 l dicyclomine 2-0 Yes Method i HCl (BENTYL 1-17 st IM) 14:07: Hospita 19 l clonAZEPAM 2-0 Yes Methodi (KlonoPIN) 1-17 st 0.5 MG 14:07: Hospita disintegrat 19 l ing tablet ciprofloxac 2-0 Yes Method i in (Cipro) 1-17 st 500 mg/5 mL 14:07: Hospit a suspension 19 l pantoprazol 2-0 Yes 40mg QD Take 40 mg Methodi e -[address] (PROTONIX) 14:07: daily. Hospi ta 40 MG EC 19 l tablet metroNIDAZO 2-0 Yes 500mg Q.[id number] Take 500 [facility] LE (FLAGYL) 1-17 [id number] mg by s t 500 MG 14:07: 3D mouth 3 Hospita tablet 19 (three) l times a day. montelukast 2021-0 Yes Method i (SINGULAIR) 1-17 st 10 mg 14:07: Hospita tablet 19 l dicyclomine 2-0 Yes Method i HCl (BENTYL 1-17 st IM) 14:07: Hospita 19 l clonAZEPAM 2-0 Yes [facility] (KlonoPIN) 1-17 st 0.5 MG 14:07: Hospita disintegrat 19 l ing tablet ciprofloxac 2021-0 Yes Method i in (Cipro) 1-17 st 500 mg/5 mL 14:07: Hospit a suspension 19 l pantoprazol 2-0 Yes 40mg QD Take 40 mg Methodi e -[address] (PROTONIX) 14:07: daily. Hospi ta 40 MG EC 19 l tablet metroNIDAZO 2-0 Yes 500mg Q.[id number] Take 500 [facility] LE (FLAGYL) 1-17 [id number] mg by s t 500 MG 14:07: 3D mouth 3 Hospita tablet 19 (three) l times a day. propranoloL 2022-0 2023- No 10mg Q.86449744 Take 1 [facility] (INDERAL) -17 - [id number] tablet (10 st 10 MG 00:00: 00:00 3D mg total) Hospit a tablet 00 :00 by mouth 3 l (three) times a day. propranoloL No 10mg Q.95003180 Take 1 [facility] (INDERAL) 06-19 [id number] tablet (10 st 10 MG 00:00: 00:00 3D mg total) Hospit a tablet 00 :00 by mouth 3 l (three) times a day. olmesartan No 40mg QD Take 1 Meth stephanie (BENICAR) 06-19 tablet (40 st 40 MG 00:00: 00:00 mg total) Hospit a tablet 00 :00 by mouth l daily. olmesartan No 40mg QD Take 1 Meth stephanie (BENICAR) 06-19 tablet (40 st 40 MG 00:00: 00:00 mg total) Hospit a tablet 00 :00 by mouth l daily. sertraline 2020-06 Yes 100mg QD Take [address] (ZOLOFT) 1-02 mg by [facility] 100 MG 16:19: mouth Medical tablet 53 daily. [place] olmesartan 2020-06 Yes 20mg QD Take [address] (BENICAR) 02 by mouth [facility] 20 MG 16:19: daily. Medical tablet 53 [place] levocetiriz 2020-06 Yes 5mg QD Take [address] ine (XYZAL) 02 by mouth Luke s 5 MG tablet 16:19: every Medic al 53 evening. [place] famotidine 2020-06 Yes 20mg Q.5D Take [address] (PEPCID) 20 -02 by mouth 2 [facility] k[facility] MG tablet 16:19: (two) Medical 53 times Center daily. propranoloL 2020-06 Yes 10mg Q.16883594 Take [address] (INDERAL) - [id number] by mouth 3 [facility] 10 MG 16:19: [...] times Center daily as needed for Itching. sertraline 2020-06 Yes 100mg QD Take [address] (ZOLOFT) 1-02 mg by [facility] 100 MG 16:19: mouth Medical tablet 53 daily. [place] olmesartan 2020-06 Yes 20mg QD Take [address] (BENICAR) 02 by mouth [facility] 20 MG 16:19: daily. Medical tablet 53 Center levocetiriz 2020-06 Yes 5mg QD Take [address] ine (XYZAL) 02 by mouth Luke s 5 MG tablet 16:19: every Medic al 53 evening. [place] famotidine 2020-06 Yes 20mg Q.5D Take [address] (PEPCID) 20 02 by mouth 2 [facility] kes MG tablet 16:19: (two) Medical 53 times Center daily. propranoloL 2020-06 Yes 10mg Q.[id number] Take [address] (INDERAL) 06-04 [id number] by mouth 3 [facility] 10 MG 16:19: 3D (three) Medical tablet 53 times Center daily. clonazePAM 2020-06 Yes .5mg Take 0.[address] (KlonoPIN) 1-02 mg by [facility] 0.5 MG 16:19: mouth 2 Medical tablet 53 (two) Center times daily as needed for Anxiety. hydrOXYzine 2020-06 Yes 25mg Take [address] (ATARAX) 25 02 by mouth 3 L[facility]ha kes MG tablet [...] Planned Date Details Comments Source Future Scheduled 2023-02-[address] [facility] Test 00:00:00 (Season Ended) [code = Medic al Center INFLUENZA VACCINE (Season Ended)] Future Scheduled 2022-09-03 Hepatitis C screening [facility] Hospital Test 16:45:07 (procedure) [code = 466232386] Future Scheduled 2022-09-03 [facility]ening for [facility] Test 16:45:07 malignant neoplasm of colon (procedure) [code = 852249802] Future Scheduled 2022-09-03 COVID-19 VACCINE (3 - Me [facility] Hospital Test 16:45:07 Booster for Moderna series) [code = COVID-19 VACCINE (3 - Booster for Moderna series)] Future Scheduled 2022-09-03 BREAST CANCER [facility] Test 16:45:07 SCREENING [code = BREAST CANCER SCREENING] Future Scheduled 2022-09-03 SHINGLES VACCINES (1 Met [facility] Hospital Test 16:45:07 of 2) [code = SHINGLES VACCINES (1 of 2)] Future Scheduled 2022-09-03 INFLUENZA VACCINE [facility] Hospital Test 16:45:07 [code = INFLUENZA VACCINE] Future Scheduled 2022-09-03 Screening for [facility] Test 16:45:07 malignant neoplasm of cervix (procedure) [code = 005074544] Future Scheduled 2022-07-19 Hepatitis C screening [facility] Hospital Test 14:12:59 (procedure) [code = 935038235] Future Scheduled 2022-07-[address] [facility] Hospital Test 14:12:59 [code = COLONOSCOPY SCREENING] Future Scheduled 2022-07-19 COVID-19 VACCINE (3 - Me [facility] Hospital Test 14:12:59 Booster for Moderna series) [code = COVID-19 VACCINE (3 - Booster for Moderna series)] Future Scheduled 2022-07-19 BREAST CANCER [facility] Test 14:12:59 SCREENING [code = BREAST CANCER SCREENING] Future Scheduled 2022-07-19 INFLUENZA VACCINE [facility] Hospital Test 14:12:59 [code = INFLUENZA VACCINE] Future Scheduled 2022-07-19 SHINGLES VACCINES (1 [facility] Hospital Test 14:12:59 of 2) [code = SHINGLES VACCINES (1 of 2)] Future Scheduled 2022-07-19 Screening for [facility] Test 14:12:59 malignant neoplasm of cervix (procedure) [code = 189333911] Future Scheduled 2022-06-[address] [facility] Test 00:00:00 (12+) [code = Medical Center DEPRESSION SCREENING (12+)] Future Scheduled 2022-06-[address] [facility] Test 00:00:00 (12+) [code = Medical Center DEPRESSION SCREENING (12+)] Future Scheduled 2022-02-01 INFLUENZA VACCINE (#1) [facility] Test 00:00:00 [code = INFLUENZA Medical Ce nter VACCINE (#1)] Future Scheduled 2022-01-13 SHINGLES VACCINES ([address] [facility] Test 00:00:00 of 2) [code = SHINGLES Medic al Center VACCINES (1 of 2)] Future Scheduled 2022-01-13 SHINGLES VACCINES ([address] [facility] Test 00:00:00 of 2) [code = SHINGLES Medic al Center VACCINES (1 of 2)] Future Scheduled 2017-01-[address] Test 00:00:00 (procedure) [code = [facility] 29128991] Future Scheduled 2017-01-[address] [facility] Test 00:00:00 (procedure) [code = [facility] 20340421] Future Scheduled 1993-01-[address] Test 00:00:00 malignant neoplasm of Medica l Center cervix (procedure) [code = 954123638] Future Scheduled 1993-01-[address] [facility] Test 00:00:00 malignant neoplasm of Medica l Center cervix (procedure) [code = 781614625] Future Scheduled 1991-01-13 DTAP/TDAP/TD [facility]ACCINES [facility] Test 00:00:00 (1 - Tdap) [code = Medical C enter DTAP/TDAP/TD VACCINES (1 - Tdap)] Future Scheduled 1991-01-13 DTAP/TDAP/TD VACCINES [facility] Test 00:00:00 (1 - Tdap) [code = Medical C enter DTAP/TDAP/TD VACCINES (1 - Tdap)] Future Scheduled 1990-01-13 HEPATITIS C SCREENING [facility] Test 00:00:00 [code = HEPATITIS C Medical Center SCREENING] Future Scheduled 1990-01-13 HEPATITIS C [facility]CRE[facility]ING [facility] Test 00:00:00 [code = HEPATITIS C Medical Center SCREENING] Future Scheduled [address] [facility] Test 00:00:00 Counseling and Medical Cente r Screening (12+) [code = Tobacco Cessation Counseling and Screening (12+)] Future Scheduled [address] [facility] Test 00:00:00 Counseling and Medical Cente r Screening (12+) [code = Tobacco Cessation Counseling and Screening (12+)] Future Scheduled 1970 COVID-19 VACCINE (#1) [facility] Test 00:00:00 [code = COVID-[address] VACCINE (#1)] Future Scheduled 1970 COVID-19 VACCINE (#1) [facility] Test 00:00:00 [code = COVID-[address] VACCINE (#1)] Future Scheduled [address] [facility] Test 00:00:00 malignant neoplasm of Medica l Center breast (procedure) [code = 309880452] Future Scheduled [address] [facility] Test 00:00:00 (combo) [code = CT Medical C enter Colonography (combo)] Future Scheduled [address] [facility] [facility] Test 00:00:00 malignant neoplasm of Medica l Center colon (procedure) [code = 246609431] Future Scheduled [address] [facility] Test 00:00:00 malignant neoplasm of Medica l Center colon (procedure) [code = 869153176] Future Scheduled [address] [facility] Test 00:00:00 malignant neoplasm of Medica l Center colon (procedure) [code = 163542757] Future Scheduled [address] [facility] Test 00:00:00 malignant neoplasm of Medica l Center colon (procedure) [code = 184388227] Future Scheduled 1970 Sigmoidoscopy [code = [facility] S[facility]oidoscopy] Medical Cente r Future Scheduled [address] [facility] Test 00:00:00 (combo) [code = CT Medical C enter Colonography (combo)] Future Scheduled [address] [facility] Test 00:00:00 malignant neoplasm of Medica l Center colon (procedure) [code = 643240115] Future Scheduled [address] [facility] Test 00:00:00 malignant neoplasm of Medica l Center colon (procedure) [code = 574828433] Future Scheduled [address] [facility] Test 00:00:00 malignant neoplasm of Medica l Center colon (procedure) [code = 141670737] Future Scheduled [address] [facility] Test 00:00:00 malignant neoplasm of Medica l Center colon (procedure) [code = 337203331] Future Scheduled 1970 Sigmoidoscopy [code = [facility] Sigmoidoscopy] Medical Cente r Future Scheduled [address] [facility] Test 00:00:00 malignant neoplasm of Medica l Center breast (procedure) [code = 103140033] Encounters Start End Encounter Admission Attending Care Care Encounter Source Date/Time Date/Time Type Type Clinicians Facility Department ID 2022-06-02 2022-06-02 Refill Larios, 1.2.840.1 [id number] [facility] 00:00:00 00:00:00 Moriah Gutierrez [id number] 3.430.2.7 Hospit a .3.653733 l .8 2022-06-02 2022-06-02 Refill Larios, 1.2.840.1 [id number] [facility] 00:00:00 00:00:00 Moriah Gutierrez [address]016.1.[address] 3.430.2.7 Hospit a .3.867997 l .8 2022-05-02 2022-05-02 Refill [place], 1.2.840.1 [id number] [facility] 00:00:00 00:00:[address] 3.430.2.7 Hospit a .3.610348 l .8 2022-05-02 2022-05-02 Refill [place], 1.2.840.1 [id number] [facility] 00:00:00 00:00:[address] 3.430.2.7 Hospit a .3.446057 l .8 2021-06-19 2021-06-19 Outpatient LARIOS, [facility] [id number] [place] 00:00:00 00:00:00 MORIAH [address] 2021-05-17 2021-05-17 Outpatient REJI, [facility] [id number] [place] 00:00:00 00:00:00 MAGDALENA [address] 2021-05-10 2021-05-10 Outpatient ANNAAPULI, [facility] [id number] [place] 00:00:00 00:00:00 MAGDALENA [address] 2021-05-01 2021-05-01 Outpatient DESPLINTER, [facility] [id number] [place] 00:00:00 00:00:00 REINA [address] 2021-04-04 2021-04-04 Emergency ER BOSS, [facility] Emergency [id number] [facility] 15:53:00 20:11:00 BUBBA 2021-03-07 2021-03-07 Outpatient REJI, [facility] [id number] [place] 00:00:00 00:00:00 MAGDALENA 352 Method i 2020-12-26 2020-12-26 Emergency [facility] Sneha [id number] [place] 00:00:00 00:00:[address] 2020-11-28 2020-11-28 Outpatient DESPLINTER, [facility] [id number] [place] 00:00:00 00:00:00 REINA [address] 2020-11-28 2020-11-28 Outpatient DESPLINTER, [facility] [id number] [place] 00:00:00 00:00:00 REINA [address] 2020-11-21 2020-11-21 Outpatient DESPLINTER, [facility] [id number] [place] 00:00:00 00:00:00 REINA [address] Results Test Description Test Time Test Comments Results Result [facility] e Comments CT, ABDOMEN 2021-04-04 Reason for 19:17:00 exam:->diffuse abd pain, [facility]: ASHLEE DORADO : 1970 Sex: F [...] be performed today to confirm this. Signed: Lisa, Vielka MDReport Verified Date/Time: 04/04/2021 19:17:10 Reading Location: [address] Transitional Reading Room REHENSIVE METABOLIC PANEL [...] NOT 1092) ACCURATE CRE ATININE CLEARANCE IN ME EDICTING GLOMERULAR FILT RATION RATE. ESTIMATED GFR IS NOT APPLICABLE FOR DIALYSIS PATIENTS. Termite Control Technician ID - BRUCEURINALYSIS W/ [id number] 17:18:44 Test Item Value Reference Range Interpretation [...] = 1663) SOURCE(BEAKER) (test code = 2795) [id number] 17:11:36 Test Item Value Reference Range Interpretation Comments LIPASE (BEAKER) (test code = 749) 25 U/L 6-51 Termite Control Technician ID - BRUCEHCG, SERUM, [id number] 17:03:54 Test Item Value Reference Range Interpretation Comments TEST SERUM Negative \[id number] 08-31-2022 (BEAKER) (test code = \ 584) CBC W/PLT COUNT & AUTO [id number] 16:53:29 Test Item Value Reference Range Interpretation [...] 0-0 H PERCENT (BEAKER) (test code = 0689)
--- NOTE | 2022-11-07 02:28 | EDPHYS ---
Physician Documentation [facility] Name: Linda Verdin Age: 52 yrs Sex: Female : 1970 Arrival Date: 11/07/2022 Time: 01:20 Bed DX4 Private MD: ED Physician Miguel Angel Gan HPI: 11/07 02:14 This 52 yrs old Female presents to ER via Ambulatory with complaints of Ear sp4 Pain. 02:20 52-year-old female presents with 6 days of left ear pain, patient was diagnosed with sp4 otitis prescribe Zithromax also given antibiotic eardrops that are containing neomycin. Patient states that this is not helping her.. Historical: - Allergies: 02:10 PENICILLINS; kl - PMHx: 02:10 Anxiety; Depression; Diverticulitis; Hypertension; palpitations; Sleep Apnea; SVT; kl Tachycardia; - Immunization history:: Adult Immunizations up to date. - Social history:: Smoking status: Patient denies any tobacco usage or history of. ROS: 02:22 Constitutional: Negative for fever, chills, and weight loss, Eyes: Negative for injury, sp4 pain, redness, and discharge, ENT: Negative for injury, and discharge, positive for left ear pain, Neck: Negative for injury, pain, and swelling, Cardiovascular: Negative for chest pain, palpitations, and edema, Respiratory: Negative for shortness of breath, cough, wheezing, and pleuritic chest pain, Abdomen/GI: Negative for abdominal pain, nausea, vomiting, diarrhea, and constipation, Back: Negative for injury and pain, : Negative for injury, bleeding, discharge, and swelling, MS/Extremity: Negative for injury and deformity, Skin: Negative for injury, rash, and discoloration, Neuro: Negative for headache, weakness, numbness, tingling, and seizure, Psych: Negative for depression, anxiety, Allergy/Immunology: Negative for hives, rash, and allergies Endocrine: Negative for neck swelling, polydipsia, polyuria, polyphagia, and weight changes Hematologic/Lymphatic: Negative for swollen nodes, abnormal bleeding, and unusual bruising Exam: 02:22 Constitutional: This is a well developed, well nourished patient who is awake, alert, sp4 and in no acute distress. Head/Face: Normocephalic, atraumatic. Eyes: Pupils equal round and reactive to light, extra-ocular motions intact. Lids and lashes normal. Conjunctiva and sclera are not injected. Cornea within normal limits. Periorbital areas with no swelling, redness, or edema. ENT: Nares patent. No nasal discharge, no septal abnormalities noted. Oropharynx with no redness, swelling, or masses, exudates, or evidence of obstruction, uvula midline. Mucous membranes moist. Positive for left ear canal swelling, redness, purulent discharge consistent with left otitis externa. Right ear exam is unremarkable. Neck: Trachea midline, no thyromegaly or masses palpated, and no cervical lymphadenopathy. Supple, full range of motion without nuchal rigidity, or vertebral point tenderness. No Meningismus. Chest/axilla: Normal chest wall appearance and motion. Nontender with no deformity. No lesions are appreciated. Cardiovascular: Regular rate and rhythm with a normal S1 and S2. No gallops, murmurs, or rubs. Normal PMI, no JVD. No pulse deficits. Respiratory: Lungs have equal breath sounds bilaterally, clear to auscultation and percussion. No rales, rhonchi or wheezes noted. No increased work of breathing, no retractions or nasal flaring. Abdomen/GI: Soft, non-tender, with normal bowel sounds. No distension or tympany. No guarding or rebound. No evidence of tenderness throughout. Back: No spinal tenderness. No costovertebral tenderness. Skin: Warm, dry with normal turgor. Normal color with no rashes, no lesions, and no evidence of cellulitis. MS/ Extremity: Pulses equal, no cyanosis. Neurovascular intact. Full, normal range of motion. Neuro: Awake and alert, GCS 15, oriented to person, place, time, and situation. Cranial nerves II-XII grossly intact. Motor strength 5/5 in all extremities. Sensory grossly intact. Psych: Awake, alert, with orientation to person, place and time. Behavior, mood, and affect are within normal limits Vital Signs: 02:07 BP 134 / 91; Pulse 85; Resp 18; Temp 97.6; Pulse Ox 97% on R/A; Weight 117.48 kg (R); kl Height 5 ft. 3 in. ; Pain 8/10; 02:07 Body Mass Index 45.88 (117.48 kg, 160.02 cm) kl 02:07 Pain Scale: Adult kl MDM: 02:22 Differential diagnosis: otitis media, otitis externa, ruptured TM, foreign body, acute sp4 otalgia. Data reviewed: vital signs. 02:25 Patient medically screened. sp4 02:25 Data reviewed: nurses notes, old medical records. ED course: We will provide cefdinir sp4 twice a day for 10 days and Ciprodex.. Administered Medications: 03:00 Drug: Rocephin (cefTRIAXone) IM 1 grams Route: IM; Site: right deltoid; aa9 03:00 Follow up: Response: No adverse reaction aa9 03:00 Drug: traMADol PO 100 mg Route: PO; aa9 03:00 Follow up: Response: No adverse reaction aa9 03:00 Drug: Acetaminophen PO 1000 mg Route: PO; aa9 03:00 Follow up: Response: No adverse reaction aa9 Disposition Summary: 11/07/22 02:28 Discharge Ordered Location: Home sp4 Problem: new sp4 Symptoms: have improved sp4 Condition: Stable sp4 Diagnosis - Other otitis externa, left ear sp4 Followup: sp4 - With: Private Physician - When: 7 - 10 days - Reason: Recheck today's complaints Discharge Instructions: - Discharge Summary Sheet sp4 - Otitis Externa, [id number] sp4 Prescriptions: - Cephalexin 500 mg Oral Capsule - take 1 capsule by ORAL route every 8 hours for 10 days; 30 capsule; Refills: 0, sp4 Product Selection Permitted - Tramadol 50 mg Oral Tablet - take 1 tablet by ORAL route every 8 hours as needed; 30 tablet; Refills: 0, sp4 Product Selection Permitted - Ciprodex 0.3-0.1 % Otic drops,suspension - instill 4 drops by OTIC route every 12 hours for 7 days Left ear canal only; 7 sp4 milliliter; Refills: 0, Product Selection Permitted Signatures: Kylie Holman RN Collette Rhodes RN RN aa9 Potepalov, Sergey, MD MD sp4 Corrections: (The following items were deleted from the chart) 02:21 02:20 52-year-old female presents with 3 days of left ear pain. sp4 sp4
--- NOTE | 2022-11-07 02:28 | ER ---
Nurse's Notes [facility] Name: Linda Verdin Age: 52 yrs Sex: Female : 1970 Arrival Date: 11/07/2022 Time: 01:20 Bed DX4 Private MD: Diagnosis: Other otitis externa, left ear Presentation: 11/07 02:07 Chief complaint: Patient states: left ear pain since after chiropractor appt kl seen by PCP and has appt with ENT but is concerned with continuing pain has completed Z zulema and mast been using neomycin ear drop with no improvement. Coronavirus screen: Vaccine status: Patient reports receiving the 2nd dose of the covid vaccine. Ebola Screen: Patient negative for fever greater than or equal to 101.5 degrees Fahrenheit, and additional compatible Ebola Virus Disease symptoms. Initial Sepsis Screen: Does the patient meet any 2 criteria? No. Patient's initial sepsis screen is negative. Does the patient have a suspected source of infection? No. Patient's initial sepsis screen is negative. Risk Assessment: Do you want to hurt yourself or someone else? Patient reports no desire to harm self or others. 02:07 Method Of Arrival: Ambulatory kl 02:07 Acuity: JOAQUINA 4 kl Triage Assessment: 02:11 General: Appears uncomfortable, Behavior is calm, cooperative. Pain: Complains of pain kl in left ear Pain currently is 8 out of 10 on a pain scale. EENT: Reports pain in left ear. Historical: - Allergies: 02:10 PENICILLINS; kl - PMHx: 02:10 Anxiety; Depression; Diverticulitis; Hypertension; palpitations; Sleep Apnea; SVT; kl Tachycardia; - Immunization history:: Adult Immunizations up to date. - Social history:: Smoking status: Patient denies any tobacco usage or history of. Screenin:00 [facility] ED Fall Risk Assessment (Adult) History of falling in the last 3 months, aa9 including since admission No falls in past 3 months (0 pts) Confusion or Disorientation No (0 pts) Intoxicated or Sedated No (0 pts) Impaired Gait No (0 pts) Mobility Assist Device Used No (0 pt) Altered Elimination No (0 pt) Score/Fall Risk Level 0 - 2 = Low Risk Oriented to surroundings, Maintained a safe environment, Educated pt \T\ family on fall prevention, incl call for assistance when getting out of bed. Abuse screen: Denies threats or abuse. Denies injuries from another. Nutritional screening: No deficits noted. Tuberculosis screening: No symptoms or risk factors identified. Assessment: 03:01 General: Appears uncomfortable, obese, well groomed, Behavior is calm, cooperative. aa9 Pain: Complains of pain in left ear. Neuro: Level of Consciousness is awake, alert, obeys commands, Oriented to person, place, time, situation. Cardiovascular: Patient's skin is warm and dry. Respiratory: Airway is patent Respiratory effort is even, unlabored. Vital Signs: 02:07 BP 134 / 91; Pulse 85; Resp 18; Temp 97.6; Pulse Ox 97% on R/A; Weight 117.48 kg (R); kl Height 5 ft. 3 in. ; Pain 8/10; 02:07 Body Mass Index 45.88 (117.48 kg, 160.02 cm) kl 02:07 Pain Scale: Adult ED Course: 01:23 Patient arrived in ED. ja2 02:10 Triage completed. 02:14 Miguel Angel Gan MD is Attending Physician. sp4 03:01 Patient has correct armband on for positive identification. Bed in low position. Call aa9 light in reach. Adult w/ patient. Pulse ox on. NIBP on. 03:01 Arm band placed on. aa9 03:02 No provider procedures requiring assistance completed. Patient did not have IV access aa9 during this emergency room visit. Administered Medications: 03:00 Drug: Rocephin (cefTRIAXone) IM 1 grams Route: IM; Site: right deltoid; aa9 03:00 Follow up: Response: No adverse reaction aa9 03:00 Drug: traMADol PO 100 mg Route: PO; aa9 03:00 Follow up: Response: No adverse reaction aa9 03:00 Drug: Acetaminophen PO 1000 mg Route: PO; aa9 03:00 Follow up: Response: No adverse reaction aa9 Medication: 03:01 VIS not applicable for this client. aa9 Outcome: 02:28 Discharge ordered by . sp4 03:02 Discharged to home ambulatory. aa9 03:02 Condition: stable 03:02 Discharge instructions given to patient, Instructed on discharge instructions, follow up and referral plans. medication usage, Demonstrated understanding of instructions, follow-up care, medications, Prescriptions given X 3. 03:02 Patient left the ED. aa9 Signatures: Kylie Holman RN RN kl Alexander, Jessica ja2 Avalos, Aylin, RN RN aa9 Miguel Angel Gan MD MD sp4
[2022-11-07] MEDS ORDERED: TRAMADOL HCL 50 MG TAB ONE (02:58)
[2022-11-07] MEDS ORDERED: ACETAMINOPHEN 500 MG TAB ONE (02:58)
[2022-11-07] MEDS ORDERED: WATER FOR INJ,STERILE 10 ML ONE (02:59)
[2022-11-07] MEDS ORDERED: CEFTRIAXONE 1000 MG/VIAL ONE (02:59)
[2022-11-07 03:21] VITALS: BP 134/91; TEMP 97.6; O2SAT 97
== END 2022-11-07 03:02 | disposition home or self-care (01) ==
LOC: ER 01:20
DX: H60.8X2 Other otitis externa, left ear (principal); H92.02 Otalgia, left ear; Z88.0 Allergy status to penicillin; I10 Essential (primary) hypertension
CPT/HCPCS: 96372; 99284; J0696

== ENCOUNTER 2024-09-13 22:54 | Emergency (ER) | payer BC ==
[2024-09-13] MEDS ORDERED: FAMOTIDINE 20 MG/2 ML VIAL IV ONE (23:57)
[2024-09-14] MEDS ORDERED: ONDANSETRON 4 MG/2 ML VIAL ONE (00:31)
[2024-09-14] MEDS ORDERED: MORPHINE 4 MG/ML SYR ONE (00:32)
[2024-09-14] MEDS ORDERED: LIDOCAINE VISCOUS 2% 10ML ORAL SOLN ONE (00:32)
[2024-09-14] MEDS ORDERED: MAGNES/ALUMIN/SIMET 30ML UCUP ONE (00:32)
[2024-09-14 00:39] LABS: Absolute Basophils 0.1 K/uL (0-0.5); Absolute Eosinophils 0.4 K/uL (0-0.5); Absolute Lymphocytes (CBC) 4.4 K/uL (0.7-4.9); Absolute Monocytes 0.9 K/uL (0.1-1.3); Absolute Neutrophil 6.1 K/uL (1.8-8.0); Basophils % 0.7 % (0-1.3); Eosinophils % 3.6 % (0-4.4); Hematocrit 38.3 % (36.0-45.0); Lymphocytes % 36.8 % (15.3-44.8); MCH 31.2 pg (27.0-35.0); MCHC 34.1 g/dL (32.0-36.0); MCV 91.6 fL (80-100); MPV 9.2 fL (7.6-11.3); Monocytes % 7.9 % (3.3-12.3); Nucleated Red Blood Cells % 0.3 % (0-0); Platelets 310 thou/uL (152-406); RBC Red Blood Cell Count 4.18 M/uL (3.86-4.86); Red Cell Distribution Width 13.7 % (12.1-15.2)
[2024-09-14 00:57] LABS: Anion Gap 10.6 mEq/L (5.0-15.0); Potassium 3.6 mEq/L (3.5-5.1)
[2024-09-14 00:58] LABS: Specific Gravity 1.011 (1.005-1.030); Urine Bilirubin NEGATIVE (Negative); Urine Blood Negative (Negative); Urine Clarity Clear (Clear); Urine Color Colorless (Yellow); Urine Glucose NEGATIVE (Negative); Urine Ketones NEGATIVE (Negative); Urine Microscopic Reflex YN NO UMIC; Urine Nitrite NEGATIVE (Negative); Urine Protein NEGATIVE (Negative); Urine Urobilinogen Normal (Normal)
[2024-09-14 00:58] LABS: Albumin 3.7 g/dL (3.4-5.0); Albumin/Globulin Ratio 1.1 (1.1-1.8); Bilirubin Total 0.5 mg/dL (0.2-1.0); Globulin 3.5 g/dL (2.3-3.5); Protein, Total 7.2 g/dL (6.4-8.2)
--- NOTE | 2024-09-14 01:04 | ER ---
Nurse's Notes [facility] Name: Linda Verdin Age: 54 yrs Sex: Female : 1970 Arrival Date: 09/13/2024 Time: 22:54 Bed DX4 Private MD: Diagnosis: Gastro-esophageal reflux disease without esophagitis Presentation: 09/13 23:02 Chief complaint: Patient states: MID EPIGASTRIC BURNING SENSATION, NAUSEA. Coronavirus cp4 screen: Client denies travel out of the [place] in the last 14 days. Ebola Screen: No symptoms or risks identified at this time. Initial Sepsis Screen: Does the patient meet any 2 criteria? No. Patient's initial sepsis screen is negative. Does the patient have a suspected source of infection? No. Patient's initial sepsis screen is negative. Risk Assessment: Do you want to hurt yourself or someone else? Patient reports no desire to harm self or others. Onset of symptoms was September 13, 2024. 23:02 Method Of Arrival: Ambulatory 4 23:02 Acuity: JOAQUINA 3 cp4 Triage Assessment: 23:04 General: Appears comfortable, Behavior is calm, cooperative. Pain: Complains of pain in cp4 epigastric area Pain currently is 6 out of 10 on a pain scale. Neuro: Level of Consciousness is awake, alert, obeys commands, Oriented to person, place, time, situation. Cardiovascular: Patient's skin is warm and dry. Respiratory: Airway is patent Respiratory effort is even, unlabored, Respiratory pattern is regular, symmetrical. Musculoskeletal: Circulation, motion, and sensation intact. Range of motion: intact in all extremities. Historical: - Allergies: 23:04 PENICILLINS; cp4 - Home Meds: 23:04 propranolol 10 mg Oral tab 1 tab every 8 hours [Active]; Zoloft 100 mg Oral tab 2 tabs cp4 once daily [Active]; Dexilant 60 mg Oral CpDB 1 cap once daily [Active]; - PMHx: 23:04 Anxiety; Depression; Diverticulitis; Hypertension; palpitations; Sleep Apnea; SVT; cp4 Tachycardia; GASTRITIS (2024); - Immunization history:: Adult Immunizations up to date. - Infectious Disease History:: Denies. - Social history:: Smoking status: Patient denies any tobacco usage or history of. Screenin/14 00:15 [facility] ED Fall Risk Assessment (Adult) History of falling in the last 3 months, kl including since admission No falls in past 3 months (0 pts) Confusion or Disorientation No (0 pts) Intoxicated or Sedated No (0 pts) Impaired Gait No (0 pts) Mobility Assist Device Used No (0 pt) Altered Elimination No (0 pt) Score/Fall Risk Level 0 - 2 = Low Risk Oriented to surroundings, Maintained a safe environment. Abuse screen: Denies threats or abuse. Nutritional screening: No deficits noted. Tuberculosis screening: No symptoms or risk factors identified. Assessment: 00:14 General: Appears in no apparent distress. comfortable, Behavior is calm, cooperative, kl appropriate for age. Pain: Complains of pain in abdomen and epigastric area Quality of pain is described as burning. Neuro: No deficits noted. Cardiovascular: No deficits noted. Respiratory: No deficits noted. GI: Reports upper abdominal pain. : No deficits noted. No signs and/or symptoms were reported regarding the genitourinary system. EENT: No deficits noted. No signs and/or symptoms were reported regarding the EENT system. Derm: No deficits noted. No signs and/or symptoms reported regarding the dermatologic system. Musculoskeletal: No deficits noted. No signs and/or symptoms reported regarding the musculoskeletal system. 01:14 Reassessment: Patient and/or family updated on plan of care and expected duration. Pain ha1 level reassessed. Patient is alert, oriented x 3, equal unlabored respirations, skin warm/dry/pink. Vital Signs: 09/13 23:02 BP 144 / 83; Pulse 60; Resp 17 S; Temp 97.9(T); Pulse Ox 99% on R/A; Weight 120.66 kg; cp4 Height 5 ft. 2 in. ; Pain 6/10; 09/14 01:00 BP 132 / 75; Pulse 62; Resp 17 S; Pulse Ox 99% on R/A; ha1 09/13 23:02 Body Mass Index 48.65 (120.66 kg, 157.48 cm) cp4 09/13 23:02 Pain Scale: Adult cp4 ED Course: 09/13 23:00 Patient arrived in ED. gm2 23:01 Arm band placed on right wrist. ha1 23:01 Patient has correct armband on for positive identification. Bed in low position. Call ha1 light in reach. Side rails up X 1. 23:04 Triage completed. cp4 23:58 Adrián Jordan FNP-C [facility]. dr5 23:58 Miguel Angel Gan MD is Attending Physician. dr5 04 00:07 Missed attempt(s): 20 gauge in left forearm. vk 00:14 Inserted saline lock: 22 gauge in right forearm, using aseptic technique. Blood kl collected. Flushed with 10 mL NS. 00:14 CBC with Diff Sent. kl 00:14 CMP Sent. kl 00:14 Lipase Sent. kl 00:43 Urinalysis w/ reflexes Sent. ha1 01:16 No provider procedures requiring assistance completed. IV discontinued, intact, ha1 bleeding controlled, No redness/swelling at site. Pressure dressing applied. 01:17 Provided Education on: MEDICATION ADMINISTRATION . ha1 Administered Medications: 00:14 Drug: Famotidine IVP 20 mg IVP once; dilute with 10 mL 0.9% NaCl; give over 2 minutes kl Route: IVP; Site: right forearm; 01:23 Follow up: Response: No adverse reaction; Marked relief of symptoms ha1 00:30 Drug: GI Cocktail without - (Maalox PO 30 ml, Lidocaine Mucous Membrane 2 % 15 ha1 ml) PO once Route: PO; 01:23 Follow up: Response: No adverse reaction; Marked relief of symptoms ha1 00:42 Not Given (Patient Refused): ondansetron 4 mg IVP once; over 2 minutes ha1 00:43 Not Given (Patient Refused): morphineor iv 4 mg IVP once over 4 mins ha1 Medication: :17 VIS not applicable for this client. ha1 Outcome: 01:03 Discharge ordered by . dr5 01:16 Discharged to home ambulatory, ha1 01:16 Condition: stable 01:16 Discharge instructions given to patient, Instructed on discharge instructions, follow up and referral plans. medication usage, Demonstrated understanding of instructions, follow-up care, medications, Prescriptions given X 2, 01:24 Patient left the ED. ha1 Signatures: Kylie Holman RN RN kl Ayala, Heidy, RN RN ha1 Rebeca Fam cp4 Lacie Sosa Vivian vk Rhodes, Dustin, FNP-C CARD RUNNER-Cdr5 Corrections: (The following items were deleted from the chart) 04/13 23:06 23:04 PMHx: GASTITIS (2024); cp4 cp4
--- NOTE | 2024-09-14 01:04 | EDPHYS ---
Physician Documentation [facility] Name: Linda Verdin Age: 54 yrs Sex: Female : 1970 Arrival Date: 09/13/2024 Time: 22:54 Bed DX4 Private MD: ED Physician Miguel Angel Gan HPI: 09/14 01:05 This 54 yrs old Female presents to ER via Ambulatory with complaints of dr5 Stomach/ burning/pain. 01:05 Onset: The symptoms/episode began/occurred acutely. Patient is a 54-year-old female dr5 with history of depression, anxiety, diverticulitis, hypertension, palpitations, coming in with epigastric burning that has happened before in the past. Patient reports that she has not seen her GI doctor recently. Patient denies abdominal pain, nausea, vomiting, diarrhea. . Historical: - Allergies: 09/13 23:04 PENICILLINS; cp4 - Home Meds: 23:04 propranolol 10 mg Oral tab 1 tab every 8 hours [Active]; Zoloft 100 mg Oral tab 2 tabs cp4 once daily [Active]; Dexilant 60 mg Oral CpDB 1 cap once daily [Active]; - PMHx: 23:04 Anxiety; Depression; Diverticulitis; Hypertension; palpitations; Sleep Apnea; SVT; cp4 Tachycardia; GASTRITIS (2024); - Immunization history:: Adult Immunizations up to date. - Infectious Disease History:: Denies. - Social history:: Smoking status: Patient denies any tobacco usage or history of. ROS: 09/14 01:05 Constitutional: as per hpi dr5 Exam: 01:05 Constitutional: This is a well developed, well nourished patient who is awake, alert, dr5 and in no acute distress. Head/Face: Normocephalic, atraumatic. Eyes: Pupils equal round and reactive to light, extra-ocular motions intact. Lids and lashes normal. Conjunctiva and sclera are non-icteric and not injected. Cornea within normal limits. Periorbital areas with no swelling, redness, or edema. Neck: Trachea midline, no thyromegaly or masses palpated, and no cervical lymphadenopathy. Supple, full range of motion without nuchal rigidity, or vertebral point tenderness. No Meningismus. Chest/axilla: Normal chest wall appearance and motion. Nontender with no deformity. No lesions are appreciated. Cardiovascular: Regular rate and rhythm with a normal S1 and S2. Normal PMI, no JVD. No pulse deficits. Respiratory: Lungs have equal breath sounds bilaterally, clear to auscultation. No rales, rhonchi or wheezes noted. No increased work of breathing, no retractions or nasal flaring. Abdomen/GI: Soft, non-tender, non-distended Back: No spinal tenderness. No costovertebral tenderness. Full range of motion. Skin: Warm, dry with normal turgor. Normal color with no rashes, no lesions, and no evidence of cellulitis. MS/ Extremity: Pulses equal, no cyanosis. Neurovascular intact. Full, normal range of motion. Neuro: Awake and alert, GCS 15, oriented to person, place, time, and situation. Cranial nerves II-XII grossly intact. Motor strength 5/5 in all extremities. Sensory grossly intact. Cerebellar exam normal. Normal gait. Vital Signs: 09/13 23:02 BP 144 / 83; Pulse 60; Resp 17 S; Temp 97.9(T); Pulse Ox 99% on R/A; Weight 120.66 kg; cp4 Height 5 ft. 2 in. ; Pain 6/10; 09/14 01:00 BP 132 / 75; Pulse 62; Resp 17 S; Pulse Ox 99% on R/A; ha1 09/13 23:02 Body Mass Index 48.65 (120.66 kg, 157.48 cm) cp4 09/13 23:02 Pain Scale: Adult cp4 MDM: 09/13 23:58 Medical Screening Exam initiated dr5 09/14 01:05 Differential diagnosis: GERD, electrolyte abnormality, gastritis. Data reviewed: vital dr5 signs, nurses notes. I considered the following discharge prescriptions or medication management in the emergency department Medications were administered in the Emergency Department. See MAR. Care significantly affected by the following chronic conditions: Hypertension, depression, sleep apnea, diverticulitis. Care significantly affected by the following Social Determinants of Health: Poor access to healthcare and/or lack of insurance, Poor access to transportation, Problems related to employment. Counseling: I had a detailed discussion with the patient and/or guardian regarding the historical points, exam findings, and any diagnostic results supporting the discharge/admit diagnosis, the presence of at least one elevated blood pressure reading (>120/80) during this emergency department visit, lab results, the need for outpatient follow up, for definitive care, a family practitioner, a advertising material distributor, to return to the emergency department if symptoms worsen or persist or if there are any questions or concerns that arise at home. Medication response: GI Cocktail relieved the patient's pain. The symptoms have resolved. Response to treatment: the patient's symptoms have resolved after treatment, the patient's condition has returned to base line. ED course: Patient reports she is feeling much better after GI cocktail. Will start patient on Protonix and Pepcid to help with GERD and patient reports that she will follow-up with her GI doctor. All questions answered. Patient did not want morphine or Zofran due to pain not being that bad. Labs given to patient on discharge. Strict ER precautions given. 09/13 23:46 Order name: CBC with Diff; Complete Time: 00:52 ha1 09/13 23:46 Order name: CMP; Complete Time: 00:58 ha1 09/13 23:46 Order name: Lipase; Complete Time: 00:58 ha1 09/14 00:24 Order name: Urinalysis w/ reflexes; Complete Time: 01:00 ha1 09/13 23:46 Order name: IV Saline Lock; Complete Time: 00:14 ha1 09/13 23:46 Order name: Labs collected and sent; Complete Time: 00:14 ha1 Administered Medications: 00:14 Drug: Famotidine IVP 20 mg IVP once; dilute with 10 mL 0.9% NaCl; give over 2 minutes kl Route: IVP; Site: right forearm; 01:23 Follow up: Response: No adverse reaction; Marked relief of symptoms ha1 00:30 Drug: GI Cocktail without - (Maalox PO 30 ml, Lidocaine Mucous Membrane 2 % 15 ha1 ml) PO once Route: PO; 01:23 Follow up: Response: No adverse reaction; Marked relief of symptoms ha1 00:42 Not Given (Patient Refused): ondansetron 4 mg IVP once; over 2 minutes ha1 00:43 Not Given (Patient Refused): morphineor iv 4 mg IVP once over 4 mins ha1 Disposition: 23:56 Co-signature as Attending Physician, Miguel Angel Gan MD I agree with the assessment sp4 and plan of care. I reviewed the patient's care provided by the Advanced Practice Provider and agree with the diagnosis and treatment plan. Disposition Summary: 09/14/24 01:03 Discharge Ordered Notes: Location: Home dr5 Condition: Stable dr5 Diagnosis - Gastro-esophageal reflux disease without esophagitis dr5 Followup: dr5 - With: Emergency Department - When: As needed - Reason: Worsening of condition Followup: dr5 - With: Private Physician - When: 1 - 2 days - Reason: Recheck today's complaints, Continuance of care, Re-evaluation by your physician Discharge Instructions: - Discharge Summary Sheet dr5 - Food Choices for Gastroesophageal Reflux Disease, Adult dr5 - Gastroesophageal Reflux Disease, Adult dr5 Forms: - Medication Reconciliation Form dr5 - Patient Portal Instructions dr5 - Leadership Thank You Letter dr5 Prescriptions: - Protonix 40 mg Oral Tablet - take 1 tablet ORAL route once daily; 30 tablet; Refills: 0, Product Selection dr5 Permitted - Pepcid 20 mg Oral Tablet - take 1 tablet ORAL route once daily for 10 days; 10 tablet; Refills: 0, Product dr5 Selection Permitted Signatures: Dispatcher [employer] Kylie Talley RN RN kl Ayala, Heidy, RN RN ha1 Miguel Angel Gan MD MD sp4 Rebeca Fam cp4 Adrián Jordan, SALESFORCE CONSULTANT-C SALESFORCE CONSULTANT-Cdr5 Corrections: (The following items were deleted from the chart) 09/13 23:06 23:04 PMHx: GASTITIS (2024); cp4 cp4
[2024-09-14 02:12] VITALS: BP 132/75; TEMP 97.9; O2SAT 99
== END 2024-09-14 01:24 | disposition home or self-care (01) ==
LOC: ER 22:54
DX: K21.9 Gastro-esophageal reflux disease without esophagitis (principal)
CPT/HCPCS: 36415; 80053; 81003; 83690; 85025; 96374; 99284; J2405